=== PATIENT | female | born 1945 | race Caucasian/White ===

== ENCOUNTER → 2020-02-19 12:15 | Outpatient (CLI) | payer MEDICARE, MEDICAID, SELFPAY ==
--- NOTE | 2020-02-19 | DI.MRI.S_ITS ---
PROCEDURE: MR KNEE RT WO CON INDICATIONS: PAIN IN RIGHT KNEE TECHNIQUE: Noncontrast sagittal PD fast spin echo and T2 fast spin echo with fat saturation, sagittal 3-D FLASH with fat saturation; coronal T1 spin echo and PD fast spin echo with fat saturation, and axial PD fast spin echo with fat saturation through the knee. COMPARISON: None. FINDINGS: Image quality: Diagnostic. Slightly degraded study due to motion artifact. Menisci: There is peripheral displacement of medial meniscus bowing medial collateral ligament. Complex tear involving body and posterior horn of medial meniscus is seen extending to both superior and inferior articulating surfaces. No evidence of focal lateral meniscal tear. The meniscal root ligaments appear intact. Cruciate ligaments: The anterior and posterior cruciate ligaments appear intact. Medial structures: There is low to moderate grade MCL sprain. The posterior oblique ligament, semimembranosus tendon insertions, oblique popliteal ligament, and meniscocapsular junction appear intact. Visualized portions of the pes anserinus tendons appear normal. No abnormal bursal fluid. Lateral structures: The lateral collateral ligament, long and short heads of the biceps femoris tendon appear intact. The popliteus tendon appears normal; the popliteofibular ligament appears intact. The posterosuperior and anteroinferior popliteomeniscal fascicles appear intact. The arcuate and fabellofibular ligaments appear intact, on either side of the lateral inferior geniculate artery. Iliotibial band appears normal. Anterior structures: The quadriceps and patellar tendons appear intact. Patellar alignment is normal. No femoral trochlear dysplasia or ventral trochlear prominence. No edema in the infrapatellar fat pad. Bones and cartilage: No bone marrow contusions or fractures. Moderate to severe tricompartmental osteoarthritis and chondromalacia is seen most prominent in the medial femoral tibial compartment. Joint space: There is moderate amount of joint fluid, and no gross intra-articular loose body.. No Abraham's cyst. Normal appearing synovial plicae are incidentally noted. IMPRESSION: 1. Peripheral displacement of medial meniscus. Complex tear involving body and posterior horn of medial meniscus extending to both superior and inferior articulating surfaces. No evidence of focal lateral meniscal tear. 2. Low to moderate grade MCL sprain. Cruciate ligaments are intact. 3. Moderate to severe tricompartmental osteoarthritis and chondromalacia most prominent in the medial femoral tibial compartment. Moderate joint effusion, no gross loose body. Dictated by: Alec Aragon M.D. on 02/19/2020 at 15:21 Approved by: Alec Aragon M.D. on 02/19/2020 at 15:50
[2020-02-19 13:27] LABS: Add Manual Diff / Slide Review NO; Basophils Absolute Auto 100 /uL (0-100); Basophils Percent Auto 1.1 % (0-2); Eosinophils Absolute Auto 100 /uL (0-450); Eosinophils Percent Auto 1.1 % (2-4); Hematocrit 45.5 % (36-46); Hemoglobin 15.2 g/dL (12.0-16.0); Lymphocytes Absolute Auto 2100 /uL (1100-4500); Lymphocytes Percent Auto 26.1 % (25-40); Mean Corpuscular HGB Conc 33.5 % (30-36); Mean Corpuscular Hemoglobin 30.8 PG (26-34); Mean Corpuscular Volume 91.8 fL (80-100); Monocytes Absolute Auto 600 /uL (0-900); Monocytes Percent Auto 7.3 % (3-14); Neutrophils Absolute Auto 5300 /uL (1500-7000); Neutrophils Percent Auto 64.4 % (50-75); Platelet Count 194 X10^3/uL (150-400); Red Blood Cell Count 4.96 X10^6/uL (4.0-5.2); Red Cell Distribution Width 14.3 % (11.6-14.8); White Blood Cell Count 8.2 X10^3/uL (4.5-11.0)
[2020-02-19 13:31] LABS: Hemoglobin A1C% w Est Avg Glu 5.4 % (4.0-6.0)
[2020-02-19 13:36] LABS: Appearance Urine UA CLOUDY; Bilirubin Urine UA NEGATIVE (NEGATIVE); Color Urine UA YELLOW; Glucose Urine UA NEGATIVE (Negative); Ketones Urine UA NEGATIVE (NEGATIVE); Leukocyte Esterase Urine UA TRACE (NEGATIVE); Nitrite Urine UA POSITIVE (Negative); Occult Blood Urine UA 2+ (Negative); Protein Urine UA NEGATIVE (Negative); Urobilinogen Urine UA 0.2 E.U./dL (0.2)
[2020-02-19 13:52] LABS: Bacteria Urine Many (>30); Culture Indicated Urine Specimen Cultured; RBC Urine 1-5/HPF (0-5/HPF); Squamous Epithelial Cell Urine 1-5 /HPF (0-5/HPF); WBC Urine 5-10/HPF (0-5/HPF)
[2020-02-19 13:55] LABS: BUN Creatinine Ratio 27.1 (6-22); Blood Urea Nitrogen 23 mg/dL (7-17); Calcium 11.3 mg/dL (8.4-10.2); Carbon Dioxide 27 mmol/L (22-32); Chloride 102 mmol/L (98-107); Estimated Glomerular Filt Rate > 60.0 mL/min (>60); Glucose 101 mg/dL (80-110); HEMOLYSIS < 15 (0-50); Sodium 135 mmol/L (137-145)
== END ==
PROVIDERS: Family Provider Internal Medicine; Referring Provider Orthopaedic Surgery; Visit Provider Orthopaedic Surgery
DX: Z01.818 Encounter for other preprocedural examination (principal); Z01.812 Encounter for preprocedural laboratory examination; M25.561 Pain in right knee; S83.231A Complex tear of medial meniscus, current injury, right knee, initial encounter; S83.411A Sprain of medial collateral ligament of right knee, initial encounter; M17.11 Unilateral primary osteoarthritis, right knee; M94.261 Chondromalacia, right knee; M25.461 Effusion, right knee; R73.9 Hyperglycemia, unspecified; N39.0 Urinary tract infection, site not specified
CPT/HCPCS: 36415; 73721; 80048; 81001; 83036; 85025; 87077; 87086; 87186; 93005

== ENCOUNTER → 2020-03-16 12:20 | Outpatient (CLI) | payer MEDICARE, MEDICAID, SELFPAY ==
[2020-03-17 23:36] LABS: COVID19 Sendout Not Detected (Not Detect)
== END ==
PROVIDERS: Family Provider Internal Medicine; Visit Provider Physician Assistant
DX: Z01.812 Encounter for preprocedural laboratory examination (principal)
CPT/HCPCS: 87635

== ENCOUNTER 2020-03-20 14:32 | Inpatient (IN) | payer MEDICARE, MEDICAID, SELFPAY ==
[2020-03-12 12:53] VITALS: BMI 37.5
[2020-03-19] VITALS (13 sets, daily range): BP systolic 94–160; BP diastolic 54–91; PULSE 60–70; RESP 11–18; TEMP 33.8–36.7; O2SAT 93–97; BMI 37.5
[2020-03-19] MEDS: CELECOXIB 200 MG CAPSULE PO (07:05)
[2020-03-19] MEDS: ACETAMINOPHEN 325 MG TABLET 975 MG PO (07:05)
[2020-03-19] MEDS: PREGABALIN 75 MG CAPSULE PO (07:06)
[2020-03-19] MEDS: VANCOMYCIN 1,000 MG/200 ML PIGGYBACK 200 MG IV (07:07)
[2020-03-19] MEDS: LACTATED RINGERS 1,000 ML 42 ML IV ×2 (07:15→09:19)
--- NOTE | 2020-03-19 07:40 | PM.PREOP ---
Pre-operative Note COVID-19 COVID-19 status: Negative Interval Note History & Physical reviewed/Exam performed by Physician: Yes Changes to H&P: No
--- NOTE | 2020-03-19 07:41 | P.OP_ITS ---
Operative Date/Time/Diagnoses Date of procedure: 03/19/20 Time of procedure: 07:56 Pre-op diagnosis: right knee oa Post-op diagnosis: same Procedure & Clinicians Procedure: right total knee Same procedure as scheduled: Yes Indications: The patient has had progressively worsening right knee pain with radiographic changes consistent with arthritis. Non-operative management has failed and the patient has requested total knee replacement. The risks, benefits and alternatives to surgery were discussed with the patient prior to proceeding. Risks discussed included, but were not limited to, failure to relieve pain, stiffness, infection, nerve damage, deep venous thrombosis, pulmonary embolism, stroke, coma, heart attack, permanent paralysis and , as well as the potential need for eventual revision of the prosthetic. Surgeon: Alexa Weldon Lens Gauger: Tali Camacho Anesthesia Type: General and Spinal Operative Notes Findings: Severe right knee osteoarthritis, good stability Closure Type: primary Specimen(s): none sent Prosthetic devices, grafts, tissues, transplants, or devices: Welodn and Nephew Elliott BCS2 5 femur, 4 tibia, +10, 35 by 7.5 patella Applied: drain(s) Estimated Blood Loss (mL): 200 Blood products transfused: none Tourniquet time (min): 70 Procedure in detail: The patient was seen in the pre-operative area, where the patient identified the right knee as the operative site and this was marked with my initials. The patient received pre-operative antibiotics, and was taken to the operating room and placed on the operative table in the supine position. After satisfactory anesthesia, a estate and trust tax principal out was performed. The right leg was encircled with a tourniquet about the proximal thigh, and the leg was prepared from the toes to the tourniquet with ChloroPrep in the usual fashion and draped through sterile drapes. The leg was elevated and exsanguinated with Eschmark bandage and the tourniquet inflated to [250] mmHg pressure. The knee was approached through an approximately 18 cm incision centered over the patella and carried into the knee through a medial parapatellar arthrotomy. A portion of the medial and lateral meniscus was resected. Soft tissue was carefully mobilized around the patella the patella was measured with a caliper. Bone was resected from the patella and the patellar height was reconstituted with up an appropriate sized patellar component. A cover was then placed on the patella. A small amount of additional medial and lateral meniscus was resected. The visionare guide fit well to the distal femur. It looked like an appropriate distal femoral cut and the cut was made without difficulty. The rotation was assessed and the appropriate size femoral guide was placed on the distal femur and finishing cuts were made. There is no evidence of notching. The anterior, posterior and chamfer cuts were then made. The posterior osteophytes and soft tissues were then removed. The posterior capsule was injected with part of a mixture of 60 ml 0.25% Marcaine mixed with 20 ml Exparel for post operative pain control. The remainder of this mixture was injected into the capsule and subcutaneous tissues during cement curing. The tibia was prepared and the visionaire guide fit well to the distal tibia. The rotation was assessed. The patient was placed in extension residual medial and lateral meniscus as well as any residual bone was carefully resected. [No] additional tibia was resected. Hemostasis was achieved especially posteriorly. Additional local was injected into the posterior capsule. The extension gap was assessed and additional releases for gap balancing were performed as necessary. It was checked with the gap manpower development advisor. The femoral component was trial was placed and the notch was finished. Trial tibial and femoral components were then placed and the knee placed through a range of motion. Range of motion was [0-130], with good stability throughout the range. The trials were then removed, and the tibia was finished. The bone was prepared with pulsatile lavage, and dried with a sponge. Cement was applied and the final prosthetics placed. Excess cement was removed during and after cement curing. A brief Betadine soak was performed. After confirming there was no extruded cement posteriorly, the final tibial insert was placed. The knee was copiously irrigated and the tourniquet deflated. Hemostasis was obtained with the [Aquamantys system]. A drain was placed and brought out superolaterally. The capsule was closed with interrupted Vicryl suture. The subcutaneous layer was closed with barbed sutures, and the skin with a running 3-0 V-Lock suture and Surgical glue. An Aquacel Ag dressing was applied and the patient was taken to recovery having tolerated the procedure well. Complications: none Post-operative Condition: stable Disposition: Acute Care Plan for aftercare: The patient will be maintained on a standard total knee replacement protocol with weight bearing as tolerated. The patient will receive aspirin and sequential compression devices for DVT prophylaxis. The patient will be discharged home when safe for the home environment.
[2020-03-19] MEDS: CEFAZOLIN 2 GM/100 ML FROZ.PIGGY IV ×2 (07:45→16:06)
--- NOTE | 2020-03-19 08:24 | SUR.OPER ---
Supine on padded OR bed. Pillow under head, arms secured on padded armboards <90 degree abduction. Safety belt across torso. Non-operative leg secured with tape over blanket over lower leg. Operative leg secured in DeMayo positioner. Foam padded brace at thigh of operative leg.
[2020-03-19] MEDS: BUPIVACAINE LIPOSOME 266 MG/20 ML VIAL INJ (08:37)
[2020-03-19] MEDS: BUPIVACAINE 0.25% W/ EPI 30 ML VIAL 60 ML INJ (08:37)
[2020-03-19] MEDS: TRANEXAMIC ACID 1,000 MG VIAL 1000 MG INJ ×2 (08:39→09:33)
[2020-03-19] MEDS: SODIUM CHLORIDE IRRIG SOLUTION 250 ML, POVIDONE-IODINE SPONGE STICKS 1 APPLIC IRR (08:40)
--- NOTE | 2020-03-19 10:10 | DI.RAD.S_ITS ---
PROCEDURE: XR KNEE RT 1TO2V INDICATIONS: POST OPERATIVE TOTAL RIGHT KNEE TECHNIQUE: 2 view(s) of the knee acquired. COMPARISON: [facility], , KNEE 1-2 VIEWS LEFT, 09/12/2015, 13:34. FINDINGS: Bones: Patient is status post right knee total arthroplasty. Hardware components are in expected positions. Visualized bony structures are intact. Soft tissues: Overlying postoperative changes are noted. IMPRESSION: Satisfactory appearance of the right knee total arthroplasty. Dictated by: Chaka Chand M.D. on 03/19/2020 at 10:59 Approved by: Chaka Chand M.D. on 03/19/2020 at 11:00
[2020-03-19] MEDS: LACTATED RINGERS 1,000 ML 100 ML IV ×2 (11:15→21:55)
--- NOTE | 2020-03-19 12:24 | PC.NURSE ---
1045- Patient up from surgery around 1044, she had a total r.knee. Dressing to r.knee is an aquacel with praneeth wrap that is all cdi. Patient has feeling down to her r.mid thigh and is starting to have more feeling to her lower abdomen, bladder area. Patient does not have the sensation to void yet. She ate lunch well and denies any nausea. IVF LR infusing at 100cc/hr and patient is tolerating this well. CMS wnl and ppx2.
[2020-03-19] MEDS: IBUPROFEN 400 MG TABLET PO ×3 (13:34→22:01)
[2020-03-19] MEDS: ACETAMINOPHEN 325 MG TABLET 650 MG PO ×2 (13:35→20:58)
--- NOTE | 2020-03-19 16:59 | PT.IIE ---
Current Diagnoses Unilateral primary osteoarthritis, right knee (03/19/20) Surgery Performed Operation Date: 03/19/20 07:45 Actual Procedures p Total Knee Arthroplasty(Right) - Alexa Weldon MD Surgical History (Last Updated 03/12/20 @ 13:10 by Deepa Martinez RN) History of arthroplasty of left knee (Acute 08/2015) History of arthroplasty of right hip (Acute 09/2014) History of colon surgery (Acute 02/2019) History of colonoscopy (Acute 2018) History of hysterectomy (Acute) History of total left hip arthroplasty (Acute 06/2014) Hx of appendectomy (Acute) Hx of arthroscopy of left knee (Acute) Hx of cholecystectomy (Acute) Hx of eye surgery (Acute 2010) Medical History (Last Updated 03/12/20 @ 13:06 by Deepa Martinez RN) Arthritis (Acute) Heel fracture (Acute ~1969) Hypercalcemia (Acute) Osteoarthritis (Acute) Physical Therapy Inpatient Evaluation/Re-Eval M1 PT/OT-IP Prior Functional Status Start: 03/19/20 13:40 Freq: NEEDED Status: Active Protocol: Document 03/19/20 16:36 AW (Rec: 03/19/20 16:59 AW [id number]) Medical Review Prior Functional Status Medical History Reviewed Yes Communication WNL. Pt is an effective verbal communicator. Mobility and Gait Independent community ambulation at baseline. Pt states she could walk at least a few blocks. Activities of Daily Living and IADL's Independent Prior Functional Level (Other details) Pt has history of bilateral THOMAS and left TKA. Social History Household Members none Living Arrangements Mobile home Number of Floors (Floors) One Floor Number of Stairs To Enter/Railing? From the front of the double wide mobile home, pt climbs 4 stairs with wide bilateral rails to her deck. She often uses the walker on one side and the right railing. From her deck, she climbs another 2 steps to her sliding door using the right railing. Home Environment Standard Height Toilet,Tub/ Shower Home Equipment Front Wheel Walker,Straight Cane,Manual Wheelchair,Raised Toilet Seat w/Armrests,Tub Transfer Bench,Shower Seat with Backrest,Hand Held Shower ,Long Handled Shoe Horn, Rubber Goods Finisher,Sock Aid,Hospital Bed, Bed Rails Additional Social History Comment Pt rented a hospital bed with rails for the first few weeks of recovery. She lives alone but has a neice who will stay in her guest room to provide assist when she discharges. Pt also has advent ladies who will look in on her and help. M2 PT-IP Current Condition Start: 03/19/20 13:40 Freq: NEEDED Status: Active Protocol: Document 03/19/20 16:36 AW (Rec: 03/19/20 16:59 AW [id number]) Physical Therapy Current Condition Current Condition Evaluation Date 03/19/20 Treatment Diagnosis R TKA; impaired mobility Onset Date 03/19/20 Weight Bearing Status Weight Bearing Status Weight Bear as Tolerated M3 PT-IP Subjective Start: 03/19/20 13:40 Freq: NEEDED Status: Active Protocol: Document 03/19/20 16:36 AW (Rec: 03/19/20 16:59 AW [id number]) Subjective Physical Therapy Visit Type Type Initial Evaluation Visit Start Time 16:00 Visit Stop Time 16:31 Total Visit Minutes 31 Physical Therapy Visit Comments Patient Comments Pt is willing to participate with PT. This isn't my first rodeo. Patient Goals To go home with family and friends to support and assist. Therapy Pain Assessment Pain When Pain Assessed During Mobility Pain Present Pain Present Pain Reported Location right knee Intensity 7 Scale Used Numeric (0 - 10) Description With Movement Pain Behaviors Facial Grimacing,Wincing Pain Management Techniques Apply Cold,Re-positioning, Timing of Activity with Medications M4 PT-IP Mobility and Gait Start: 03/19/20 13:40 Freq: NEEDED Status: Active Protocol: Document 03/19/20 16:36 AW (Rec: 03/19/20 16:59 AW [id number]) PT-Bed Mobility Assessment Supine to Sit Supine to Sit Standby Assistance,Head of Bed Elevated Scooting Scooting to Edge of Bed Standby Assistance PT-Transfer Assessment Sit to and From Stand Sit to and from Stand Contact Guard Assistance,1 Person Assistance,Use of Upper Extremities Equipment Transfer Assistive Device Gait Belt,Front Wheeled Walker Transfers Transfer Destination Chair,Bedside Commode Transfer Technique pt ambulated with FWW Transfer Ability Level of Assist Contact Guard Assistance,Use of Upper Extremities Comments Mobility Comments Pt was lying in bed upon PT arrival. She was still not able to feel her glutes and had limited sensation distally but was willing to attempt mobility. She has rented a hospital bed for home so completed supine to sit with HOB elevated SBA. She sat EOB with and without UE support before standing with the walker CGA. She was able to maintain right quad activation without verbal or tactile cues. She transferred to the [facility] CGA and proceeded to void. She then stood CGA with the FWW ~ three minutes and performed her own pericare with steady balance. Pt then ambulated in the halls with FWW CGA with min verbal cues to keep her feet within the walker frame at all time. Pt also responded well to cues to keep her shoulders over her hands in order to avoid excessive trunk flexion. Pt returned to the room and transferred to the chair CGA. She was positioned there with call light and all needs within reach. Pt was left with CAFE ATTENDANT attending. Gait Assessment Gait Gait Assistance Required: Contact Guard Assist Distance (Feet) 50 Able to Maintain Weight Bearing Status Yes During Gait Assistive Devices Assistive Device Gait Belt,Front Wheeled Walker Gait Deviations General Gait Pattern Antalgic,Decreased Stride Length,Decreased Feet Clearance,Flexed Trunk,Step-to Gait Factors Limiting Gait Function Factors Limiting Gait Function Decreased Activity Tolerance, Decreased Sensation,Decreased Strength,Limited Range of Motion,Pain,Poor Balance,Poor Safety Awareness Comments Gait Comments See mobility comments. Pt ambulated with FWW CGA, step- to patterning. Stair Climbing Assessment Comments Stair Climbing Comments Not assessed this visit. PT-Balance Assessment Sitting Balance and Reactions Static Sitting Balance Ability Normal Dynamic Sitting Balance Ability Normal Standing Balance and Reactions Static Standing Balance Ability Good Dynamic Standing Balance Ability Good Device Used FWW M5 PT-IP Objective Assessments Start: 03/19/20 13:40 Freq: NEEDED Status: Active Protocol: Document 03/19/20 16:36 AW (Rec: 03/19/20 16:59 AW [id number]) Orientation Orientation/Cognition Level of Alertness Alert Orientation Name,Day of Week,Place, Situation Language Function Ability No Deficits Noted Safety Awareness Understands Safety Issues, Decreased Safety Awareness Memory Description No Deficits Noted Gross Range of Motion Upper Extremity ROM Assessment Within Functional Limits Lower Extremity ROM Assessment Right Impaired Strength Lower Extremity Strength Assessment Right Impaired Comments Strength Comments L LE grossly 4+/5 except hip 4 /5 Coordination Assessment Gross Coordination Gross Coordination WNL Sensation Assessment Sensation Gross Sensation Right LE Impaired,Left LE Impaired Light Touch Impaired Sensation Description Numbness Muscle Tone Muscle Tone WNL Yes M6 PT-IP Treatment Start: 03/19/20 13:40 Freq: NEEDED Status: Active Protocol: Document 03/19/20 16:36 AW (Rec: 03/19/20 16:59 AW [id number]) Physical Therapy Treatment Exercises Exercises Ankle Pumps,Quad Sets,Heel Slides,Passive Knee Extension Hang Education Education Provided Precautions,Weight Bearing Status,Post-Op Packet,Safety Other Treatments Other Treatment Performed Provided education on role of PT, plan of care, weightbearing status, and safe use of FWW. M7 PT-IP Assessment and Plan Start: 03/19/20 13:40 Freq: NEEDED Status: Active Protocol: Document 03/19/20 16:36 AW (Rec: 03/19/20 16:59 AW [id number]) PT Summary Assessment and Plan Potential Rehabilitation Potential Good Status of Condition at Evaluation Evolving Summary Impairments Pain,ROM,Strength,Balance, Sensation,Bed Mobility, Transfers,Gait,Activity Tolerance Assessment Summary July is a 74 yo woman seen for PT evaluation on POD0 following R TKA. She has history of bilateral THOMAS and left TKA - all with good recoveries. She is independent in all regards at baseline and is well-equipped with DME at home from past surgeries. She has also rented a hospital bed for the first few weeks of present recovery. On evaluation, pt required SBA for bed mobility and CGA for transfers and ambulation with FWW. PT anticipates she will be safe to discharge home with assist and outpatient PT once medically cleared. Goals Bed Mobility Goal Independent Transfer Goal Standby Assistance,Front Wheeled Walker Gait Goal Standby Assistance,Front Wheel Walker Gait Distance 200 Other Goals - up/down 4 steps with R rail ascending SBA Days to Meet Goals 2 Frequency of Treatment Frequency Of Treatment Twice a Day Treatment Plan Physical Therapy Treatment Plan Bed Mobility Training,Transfer Training,Gait Training, Therapeutic Exercise,Balance Retraining,Post Op Education, Discharge Planning,Hot or Cold Pack,Neuromuscular Re-ed Other Recommendations and Next Treatment gait training with FWW; stairs Focus if able Recommendations To Nursing Amount of Assist Needed 1 Person Assist Discharge Recommendations PT Discharge Recommendations Home with Assistance, Outpatient PT Transportation Needs at Discharge Private Vehicle
[2020-03-19] MEDS: OXYCODONE IR 5 MG TABLET PO (17:08)
[2020-03-19] MEDS: ASCORBIC ACID 500 MG TABLET PO (20:58)
[2020-03-19] MEDS: ASPIRIN EC 81 MG TABLET PO (20:58)
[2020-03-19] MEDS: DOCUSATE 100 MG CAPSULE PO (20:59)
[2020-03-20] VITALS (7 sets, daily range): BP systolic 116–140; BP diastolic 67–77; PULSE 61–72; RESP 16–18; TEMP 35.9–36.8; O2SAT 95–96
[2020-03-20] MEDS: IBUPROFEN 400 MG TABLET PO ×6 (00:23→21:08)
[2020-03-20] MEDS: CEFAZOLIN 2 GM/100 ML FROZ.PIGGY IV (00:23)
[2020-03-20] MEDS: OXYCODONE IR 5 MG TABLET PO (05:19)
[2020-03-20 06:10] LABS: Hematocrit 38.4 % (36-46); Hemoglobin 12.6 g/dL (12.0-16.0)
[2020-03-20] MEDS: ASPIRIN EC 81 MG TABLET PO ×2 (08:24→21:02)
[2020-03-20] MEDS: OXYCODONE IR 10 MG TABLET PO ×3 (08:25→16:26)
[2020-03-20] MEDS: ACETAMINOPHEN 325 MG TABLET 650 MG PO ×3 (08:25→21:01)
[2020-03-20] MEDS: ZINC SULFATE 220 MG CAPSULE PO (08:26)
[2020-03-20] MEDS: ASCORBIC ACID 500 MG TABLET PO ×2 (08:26→21:02)
[2020-03-20] MEDS: CHOLECALCIFEROL (VITAMIN D3) 5,000 UNIT TABLET 5000 UNIT PO (08:26)
[2020-03-20] MEDS: CHLORTHALIDONE 25 MG TABLET PO (08:26)
[2020-03-20] MEDS: CYANOCOBALAMIN (VITAMIN B-12) 500 MCG TABLET 1000 MCG PO (08:27)
[2020-03-20] MEDS: DOCUSATE 100 MG CAPSULE PO ×2 (08:27→21:02)
--- NOTE | 2020-03-20 09:40 | PC.NURSE ---
Addendum entered by Alison Cohen R.N. 03/20/20 14:01: Patients hemovac taken out. She had 100cc of bloody drainage out. Her r.leg is elevated and she is comfortable. Addendum entered by Alison Cohen R.N. 03/20/20 13:50: Patient medicated with Oxycodone around 1200. She sat up and worked with physical therapy and did well. Patient is still having some pain issues, she will be discharging tomorrow. Hemovac taken out. Original Note: Patient is A&Ox3, she denies pain at this time as her oxycodone has been increased to 10mg. This seems to be effective for her 6/10 pain. Patient has an aquacel dressing in place with praneeth wrap that is cdi. She is getting up with 1 person assist to the commode. Resting comfortably now, CMS wnl.
--- NOTE | 2020-03-20 11:05 | CM.DANOTE ---
DCP: Case received, EMR reviewed and met with patient. Introduced self and role. Was able to meet with patient and obtain information regarding her baseline activity level at home prior to surgery, and living situation. DCP assessment completed with information currently available. Patient is a 74 year old female who admitted yesterday morning to the care of the orthopedic team. PCP: Dr. Bryant. Payer: confirmed: Medicare/Medicaid. Patient came to the hospital via family vehicle for a surgical procedure. She had right total knee arthroplasty. Patient has history of osteoarthritis in her knee, resulting in chronic knee pain. Met with patient in her room. She was sitting up in her bed. She is alert and oriented. She lives in [place], alone. Her daughter, Carolee Hurt also lives in the area, but patient indicated that her niece, Tamela, will be staying with her to help out. Patient also has stairs in the home, which P.T. will be working with her on. She does have a walker for use. P: DCP to continue to follow. Patient should be able to go home when she is medically stable and cleared by P.T. Liza Salinas RN/Fundraising Manager
--- NOTE | 2020-03-20 11:45 | PT.IPTN ---
Current Diagnoses Unilateral primary osteoarthritis, right knee (03/19/20) Surgery Performed Operation Date: 03/19/20 07:45 Actual Procedures p Total Knee Arthroplasty(Right) - Alexa Weldon MD Physical Therapy Treatment Note M2 PT-IP Current Condition Start: 03/19/20 13:40 Freq: NEEDED Status: Active Protocol: Document 03/19/20 16:36 AW (Rec: 03/19/20 16:59 AW [id number]) Physical Therapy Current Condition Current Condition Evaluation Date 03/19/20 Treatment Diagnosis R TKA; impaired mobility Onset Date 03/19/20 Weight Bearing Status Weight Bearing Status Weight Bear as Tolerated M3 PT-IP Subjective Start: 03/19/20 13:40 Freq: NEEDED Status: Active Protocol: Document 03/20/20 11:19 SP (Rec: 03/20/20 14:02 SP [id number]) Subjective Physical Therapy Visit Type Type Treatment Note Visit Start Time 11:19 Visit Stop Time 11:45 Total Visit Minutes 26 Notes PRICE LISTER student [place], assisted during tx. Number of PRICE LISTER Visits 1 Physical Therapy Visit Comments Patient Comments Pt is willing to participate with PT. This isn't my first rodeo. Patient Goals To go home with family and friends to support and assist. Therapy Pain Assessment Pain When Pain Assessed During Mobility Pain Present Pain Present Pain Reported Location right knee Intensity 6 Scale Used Numeric (0 - 10) Description Aching,Acute,With Movement Pain Behaviors Facial Grimacing,Holding Area, Restlessness,Wincing Pain Management Techniques Apply Cold,Re-positioning, Timing of Activity with Medications M4 PT-IP Mobility and Gait Start: 03/19/20 13:40 Freq: NEEDED Status: Active Protocol: Document 03/20/20 11:19 SP (Rec: 03/20/20 14:02 SP [id number]) PT-Bed Mobility Assessment Supine to Sit Supine to Sit Standby Assistance,Head of Bed Elevated Sit to Supine Sit to Supine Standby Assistance Scooting Scooting to Edge of Bed Standby Assistance PT-Transfer Assessment Sit to and From Stand Sit to and from Stand Standby Assistance,Contact Guard Assistance,Use of Upper Extremities Equipment Transfer Assistive Device Gait Belt,Front Wheeled Walker Transfers Transfer Destination Bed,Wheelchair Transfer Technique pt ambulated with FWW Transfer Ability Level of Assist Contact Guard Assistance,Use of Upper Extremities Comments Mobility Comments Pt was lying in bed upon PT arrival. Instructed post op exercises warm up to mobility, x2 reps each, AAROM heel slides with her UE support. Elevated supine<> sitting SBA with UE supporting RLE in/out bed, scoot to EOB SBA. Sit <> stand CG-SBA using FWW, needed stationary standing brief pre gait for RLE stability, CGA L side of bed to hallway approx 20 ft (not as far as previous distances) step to gait initially but improved with cuing for BUE WB into FWW, RLE quad facilitation during midstance and knee flexion and heel toe gait progressing step over step as tolerated. Once outsided room pt requested needed seated break, step pivot back to w/c with good safety hand placment and slow descent. Pt demonstrated decreased strength, activity tolerance and report of increased pain to R knee 04/08. Pt agreed to continue to assessment of stair mgt, therapist wheeled patient to stairs. Pt ascend/descended 6 stairs step to patterning L HR and SPC in RUE, initially Min A and support to stabilize SPC then second set CGA and patient able to stabilize SPC herself. Pt was able to walk further in hallway after stairs approx 20 ft with w/c follow before requiring seated rest due to pain of R knee intolerable. Wheeled patient back to room. Pt walked further in room approx 15 ft SBA using FWW then safe step pivoting to back up to bed with reaching back then sitting>supine SBA with UE support to reposition RLE on bed herself. Pt was elevated supine in bed with RLE support on pillows, cold pack donned and call light and all needs in reach before left. Pt requested that notify nursing med assistance with pain control, completed. She has rented a hospital bed for home so completed supine to sit with HOB elevated SBA. She sat EOB with and without UE support before standing with the walker CGA. She was able to maintain right quad activation without verbal or tactile cues. [place] transferred to the [facility] [place] and proceeded to void. She then stood CGA with the FWW ~ three minutes and performed her own pericare with steady balance. Pt then ambulated in the halls with FWW CGA with min verbal cues to keep her feet within the walker frame at all time. Pt also responded well to cues to keep her shoulders over her hands in order to avoid excessive trunk flexion. Pt returned to the room and transferred to the chair [facility]. She was positioned there with call light and all needs within reach. Pt was left with [employer] attending. Gait Assessment Gait Gait Assistance Required: Contact Guard Assist Distance (Feet) 20 Able to Maintain Weight Bearing Status Yes During Gait Assistive Devices Assistive Device Gait Belt,Front Wheeled Walker Gait Deviations General Gait Pattern Antalgic,Decreased Stride Length,Decreased Feet Clearance,Flexed Trunk,Step-to Gait Factors Limiting Gait Function Factors Limiting Gait Function Decreased Activity Tolerance, Decreased Sensation,Decreased Strength,Limited Range of Motion,Pain,Poor Balance,Poor Safety Awareness Comments Gait Comments See mobility comments. Ambulted 20 ft, 20 ft, 15 ft using FWW CGA- SBA wtih w/c follow in hallway step to progressing step over step patterning. Stair Climbing Assessment Evaluation Level of Assist On Stairs Contact Guard Assistance, Minimal Assistance,1 Person Assistance Devices Stair Climbing Assistive Devices Straight Cane,Left Railing Technique/Endurance Stair Climbing Direction Ascend and Descend Stair Climbing Technique Step to Step Number of Steps Climbed 3 Stair Climbing Set # Repetitions (reps) 2 Comments Stair Climbing Comments See mobility comments. PT-Balance Assessment Sitting Balance and Reactions Static Sitting Balance Ability Normal Dynamic Sitting Balance Ability Normal Standing Balance and Reactions Static Standing Balance Ability Good Dynamic Standing Balance Ability Good Device Used FWW M5 PT-IP Objective Assessments Start: 03/19/20 13:40 Freq: NEEDED Status: Active Protocol: Document 03/19/20 16:36 AW (Rec: 03/19/20 16:59 AW [id number]) Orientation Orientation/Cognition Level of Alertness Alert Orientation Name,Day of Week,Place, Situation Language Function Ability No Deficits Noted Safety Awareness Understands Safety Issues, Decreased Safety Awareness Memory Description No Deficits Noted Gross Range of Motion Upper Extremity ROM Assessment Within Functional Limits Lower Extremity ROM Assessment Right Impaired Strength Lower Extremity Strength Assessment Right Impaired Comments Strength Comments L LE grossly 4+/5 except hip 4 /5 Coordination Assessment Gross Coordination Gross Coordination WNL Sensation Assessment Sensation Gross Sensation Right LE Impaired,Left LE Impaired Light Touch Impaired Sensation Description Numbness Muscle Tone Muscle Tone WNL Yes M6 PT-IP Treatment Start: 03/19/20 13:40 Freq: NEEDED Status: Active Protocol: Document 03/20/20 11:19 SP (Rec: 03/20/20 14:02 SP [id number]) Physical Therapy Treatment Exercises Exercises Ankle Pumps,Quad Sets,Heel Slides,Seated Knee Flexion/ Extension Education Education Provided Precautions,Weight Bearing Status,Post-Op Packet,Safety M7 PT-IP Assessment and Plan Start: 03/19/20 13:40 Freq: NEEDED Status: Active Protocol: Document 03/20/20 11:19 SP (Rec: 03/20/20 14:02 SP [id number]) PT Summary Assessment and Plan Potential Rehabilitation Potential Good Status of Condition at Evaluation Evolving Summary Impairments Pain,ROM,Strength,Balance, Sensation,Bed Mobility, Transfers,Gait,Activity Tolerance Assessment Summary July is independent in all regards at baseline PLOF and is well-equipped with DME at home from past surgeries. She has also rented a hospital bed for the first few weeks of present recovery. Pt required SBA for bed mobility and CGA- SBA for transfers and ambulation with FWW, CGA- Kota during stair mgt L HR and SPC RUE. Pt demonstrated decreased strength and activity tolerance and reported increased pain 8/10 during mobility but willing to work with PT at this time. Would benefit from further acute skilled PT pm treatment to progress further in strength within pain tolerance : LE exercises and WB in standing to progress functional mobility. PRICE LISTER anticipates she will be safe to discharge home with assist and outpatient PT once medically cleared. Goals Bed Mobility Goal Independent Transfer Goal Standby Assistance,Front Wheeled Walker Gait Goal Standby Assistance,Front Wheel Walker Gait Distance 200 Other Goals - up/down 4 steps with R rail ascending SBA Days to Meet Goals 2 Frequency of Treatment Frequency Of Treatment Twice a Day Treatment Plan Physical Therapy Treatment Plan Bed Mobility Training,Transfer Training,Gait Training, Therapeutic Exercise,Balance Retraining,Post Op Education, Discharge Planning,Hot or Cold Pack,Neuromuscular Re-ed Other Recommendations and Next Treatment LE exercises, gait training Focus with FWW; Recommendations To Nursing Amount of Assist Needed Standby Assistance Discharge Recommendations PT Discharge Recommendations Home with Assistance, Outpatient PT Transportation Needs at Discharge Private Vehicle
--- NOTE | 2020-03-20 11:45 | PT.IPTN ---
Current Diagnoses Unilateral primary osteoarthritis, right knee (03/20/20) Surgery Performed Operation Date: 03/19/20 07:45 Actual Procedures p Total Knee Arthroplasty(Right) - Alexa Weldon MD Physical Therapy Treatment Note M2 PT-IP Current Condition Start: 03/19/20 13:40 Freq: NEEDED Status: Active Protocol: Document 03/19/20 16:36 AW (Rec: 03/19/20 16:59 AW [id number]) Physical Therapy Current Condition Current Condition Evaluation Date 03/19/20 Treatment Diagnosis R TKA; impaired mobility Onset Date 03/19/20 Weight Bearing Status Weight Bearing Status Weight Bear as Tolerated M3 PT-IP Subjective Start: 03/19/20 13:40 Freq: NEEDED Status: Active Protocol: Document 03/20/20 11:19 SP (Rec: 03/20/20 14:02 SP [id number]) Subjective Physical Therapy Visit Type Type Treatment Note Visit Start Time 11:19 Visit Stop Time 11:45 Total Visit Minutes 26 Notes MASK INSPECTOR student [place], assisted during tx. Number of MASK INSPECTOR Visits 1 Physical Therapy Visit Comments Patient Comments Pt is willing to participate with PT. This isn't my first rodeo. Patient Goals To go home with family and friends to support and assist. Therapy Pain Assessment Pain When Pain Assessed During Mobility Pain Present Pain Present Pain Reported Location right knee Intensity 6 Scale Used Numeric (0 - 10) Description Aching,Acute,With Movement Pain Behaviors Facial Grimacing,Holding Area, Restlessness,Wincing Pain Management Techniques Apply Cold,Re-positioning, Timing of Activity with Medications M4 PT-IP Mobility and Gait Start: 03/19/20 13:40 Freq: NEEDED Status: Active Protocol: Document 03/20/20 11:19 SP (Rec: 03/20/20 14:02 SP [id number]) PT-Bed Mobility Assessment Supine to Sit Supine to Sit Standby Assistance,Head of Bed Elevated Sit to Supine Sit to Supine Standby Assistance Scooting Scooting to Edge of Bed Standby Assistance PT-Transfer Assessment Sit to and From Stand Sit to and from Stand Standby Assistance,Contact Guard Assistance,Use of Upper Extremities Equipment Transfer Assistive Device Gait Belt,Front Wheeled Walker Transfers Transfer Destination Bed,Wheelchair Transfer Technique pt ambulated with FWW Transfer Ability Level of Assist Contact Guard Assistance,Use of Upper Extremities Comments Mobility Comments Pt was lying in bed upon PT arrival. Instructed post op exercises warm up to mobility, x2 reps each, LEE ANN heel slides with her UE support. Elevated supine<> sitting SBA with UE supporting RLE in/out bed, scoot to EOB SBA. Sit <> stand CG-SBA using FWW, needed stationary standing brief pre gait for RLE stability, CGA L side of bed to hallway approx 20 ft (not as far as previous distances) step to gait initially but improved with cuing for BUE WB into FWW, RLE quad facilitation during midstance and knee flexion and heel toe gait progressing step over step as tolerated. Once outsided room pt requested needed seated break, step pivot back to w/c with good safety hand placment and slow descent. Pt demonstrated decreased strength, activity tolerance and report of increased pain to R knee 04/08. Pt agreed to continue to assessment of stair mgt, therapist wheeled patient to stairs. Pt ascend/descended 6 stairs step to patterning L HR and SPC in RUE, initially Min A and support to stabilize SPC then second set CGA and patient able to stabilize SPC herself. Pt was able to walk further in hallway after stairs approx 20 ft with w/c follow before requiring seated rest due to pain of R knee intolerable. Wheeled patient back to room. Pt walked further in room approx 15 ft SBA using FWW then safe step pivoting to back up to bed with reaching back then sitting>supine SBA with UE support to reposition RLE on bed herself. Pt was elevated supine in bed with RLE support on pillows, cold pack donned and call light and all needs in reach before left. Pt requested that notify nursing med assistance with pain control, completed. Gait Assessment Gait Gait Assistance Required: Contact Guard Assist Distance (Feet) 20 Able to Maintain Weight Bearing Status Yes During Gait Assistive Devices Assistive Device Gait Belt,Front Wheeled Walker Gait Deviations General Gait Pattern Antalgic,Decreased Stride Length,Decreased Feet Clearance,Flexed Trunk,Step-to Gait Factors Limiting Gait Function Factors Limiting Gait Function Decreased Activity Tolerance, Decreased Sensation,Decreased Strength,Limited Range of Motion,Pain,Poor Balance,Poor Safety Awareness Comments Gait Comments See mobility comments. Ambulted 20 ft, 20 ft, 15 ft using FWW CGA- SBA wtih w/c follow in hallway step to progressing step over step patterning. Stair Climbing Assessment Evaluation Level of Assist On Stairs Contact Guard Assistance, Minimal Assistance,1 Person Assistance Devices Stair Climbing Assistive Devices Straight Cane,Left Railing Technique/Endurance Stair Climbing Direction Ascend and Descend Stair Climbing Technique Step to Step Number of Steps Climbed 3 Stair Climbing Set # Repetitions (reps) 2 Comments Stair Climbing Comments See mobility comments. PT-Balance Assessment Sitting Balance and Reactions Static Sitting Balance Ability Normal Dynamic Sitting Balance Ability Normal Standing Balance and Reactions Static Standing Balance Ability Good Dynamic Standing Balance Ability Good Device Used FWW M5 PT-IP Objective Assessments Start: 03/19/20 13:40 Freq: NEEDED Status: Active Protocol: Document 03/19/20 16:36 AW (Rec: 03/19/20 16:59 AW [id number]) Orientation Orientation/Cognition Level of Alertness Alert Orientation Name,Day of Week,Place, Situation Language Function Ability No Deficits Noted Safety Awareness Understands Safety Issues, Decreased Safety Awareness Memory Description No Deficits Noted Gross Range of Motion Upper Extremity ROM Assessment Within Functional Limits Lower Extremity ROM Assessment Right Impaired Strength Lower Extremity Strength Assessment Right Impaired Comments Strength Comments L LE grossly 4+/5 except hip 4 /5 Coordination Assessment Gross Coordination Gross Coordination WNL Sensation Assessment Sensation Gross Sensation Right LE Impaired,Left LE Impaired Light Touch Impaired Sensation Description Numbness Muscle Tone Muscle Tone WNL Yes M6 PT-IP Treatment Start: 03/19/20 13:40 Freq: NEEDED Status: Active Protocol: Document 03/20/20 11:19 SP (Rec: 03/20/20 14:02 SP [id number]) Physical Therapy Treatment Exercises Exercises Ankle Pumps,Quad Sets,Heel Slides,Seated Knee Flexion/ Extension Education Education Provided Precautions,Weight Bearing Status,Post-Op Packet,Safety M7 PT-IP Assessment and Plan Start: 03/19/20 13:40 Freq: NEEDED Status: Active Protocol: Document 03/20/20 11:19 SP (Rec: 03/20/20 14:02 SP [id number]) PT Summary Assessment and Plan Potential Rehabilitation Potential Good Status of Condition at Evaluation Evolving Summary Impairments Pain,ROM,Strength,Balance, Sensation,Bed Mobility, Transfers,Gait,Activity Tolerance Assessment Summary July is independent in all regards at baseline PLOF and is well-equipped with DME at home from past surgeries. She has also rented a hospital bed for the first few weeks of present recovery. Pt required SBA for bed mobility and CGA- SBA for transfers and ambulation with FWW, CGA- Kota during stair mgt L HR and SPC RUE. Pt demonstrated decreased strength and activity tolerance and reported increased pain 8/10 during mobility but willing to work with PT at this time. Would benefit from further acute skilled PT pm treatment to progress further in strength within pain tolerance : LE exercises and WB in standing to progress functional mobility. MASK INSPECTOR anticipates she will be safe to discharge home with assist and outpatient PT once medically cleared. Goals Bed Mobility Goal Independent Transfer Goal Standby Assistance,Front Wheeled Walker Gait Goal Standby Assistance,Front Wheel Walker Gait Distance 200 Other Goals - up/down 4 steps with R rail ascending SBA Days to Meet Goals 2 Frequency of Treatment Frequency Of Treatment Twice a Day Treatment Plan Physical Therapy Treatment Plan Bed Mobility Training,Transfer Training,Gait Training, Therapeutic Exercise,Balance Retraining,Post Op Education, Discharge Planning,Hot or Cold Pack,Neuromuscular Re-ed Other Recommendations and Next Treatment LE exercises, gait training Focus with FWW; Recommendations To Nursing Amount of Assist Needed Standby Assistance Discharge Recommendations PT Discharge Recommendations Home with Assistance, Outpatient PT Transportation Needs at Discharge Private Vehicle
--- NOTE | 2020-03-20 16:03 | PT.IPTN ---
Current Diagnoses Unilateral primary osteoarthritis, right knee (03/20/20) Surgery Performed Operation Date: 03/19/20 07:45 Actual Procedures p Total Knee Arthroplasty(Right) - Alexa Weldon MD Physical Therapy Treatment Note M2 PT-IP Current Condition Start: 03/19/20 13:40 Freq: NEEDED Status: Active Protocol: Document 03/19/20 16:36 AW (Rec: 03/19/20 16:59 AW [id number]) Physical Therapy Current Condition Current Condition Evaluation Date 03/19/20 Treatment Diagnosis R TKA; impaired mobility Onset Date 03/19/20 Weight Bearing Status Weight Bearing Status Weight Bear as Tolerated M3 PT-IP Subjective Start: 03/19/20 13:40 Freq: NEEDED Status: Active Protocol: Document 03/20/20 15:44 SP (Rec: 03/20/20 17:39 SP [id number]) Subjective Physical Therapy Visit Type Type Treatment Note Visit Start Time 15:44 Visit Stop Time 16:03 Total Visit Minutes 19 Notes [employer] student [place], attended tx. Number of DIRECTOR OF EVENT SALES Visits 2 Physical Therapy Visit Comments Patient Comments Pt willing to work with PT. Patient Goals To go home, family and friends to support and assist as needed. Therapy Pain Assessment Pain When Pain Assessed During Mobility Pain Present Pain Present Pain Reported Location right knee Intensity 5 Scale Used Numeric (0 - 10) Description Aching,Acute,With Movement Pain Behaviors Facial Grimacing,Holding Area, Restlessness,Wincing Pain Management Techniques Apply Cold,Re-positioning, Timing of Activity with Medications M4 PT-IP Mobility and Gait Start: 03/19/20 13:40 Freq: NEEDED Status: Active Protocol: Document 03/20/20 15:44 SP (Rec: 03/20/20 17:39 SP [id number]) PT-Bed Mobility Assessment Supine to Sit Supine to Sit Standby Assistance,Head of Bed Elevated Sit to Supine Sit to Supine Standby Assistance Scooting Scooting to Edge of Bed Standby Assistance Scooting Up and Down in Bed Standby Assistance PT-Transfer Assessment Sit to and From Stand Sit to and from Stand Standby Assistance,Use of Upper Extremities Equipment Transfer Assistive Device Gait Belt,Front Wheeled Walker Transfers Transfer Destination Bed Transfer Technique pt ambulated with FWW Transfer Ability Level of Assist Contact Guard Assistance,Use of Upper Extremities Comments Mobility Comments Pt was lying in bed upon PT arrival. Elevated supine<> sitting SBA RLE reposition itself in/out bed, scoot to EOB SBA. Sit <> stand SBA using FWW then step pivot bed to BSC approx 2 steps SBA using FWW and reach back slow descent onto BSC. Sit to stand from commode BUE and fWW, standign balance with FWW 1 hand contact support as needed while completing self hygiene (therapist provided set up supplies). Pt walked to sink approx 5 ft using FWW with improvement in step over step gait patterning with occasional cues. She was able to stand at sink without contact support fWW position correctly in front. Pt then ambulate across room and back to L side of bed approx 30 ft SBA using FWW step over step patterning and moderate BUE WB on FWW during LLE advancement, sat at EOB and sitting>supine, scoot up in bed SBA. Provided pillows under RLE full length allowing full extension and education of importance of knee being straight and reapplied cold pack for assist pain control. Call light and all needs in reach before left. Gait Assessment Gait Gait Assistance Required: Contact Guard Assist Distance (Feet) 30 Able to Maintain Weight Bearing Status Yes During Gait Assistive Devices Assistive Device Gait Belt,Front Wheeled Walker Gait Deviations General Gait Pattern Antalgic,Decreased Stride Length,Decreased Feet Clearance,Flexed Trunk Factors Limiting Gait Function Factors Limiting Gait Function Decreased Activity Tolerance, Decreased Sensation,Decreased Strength,Limited Range of Motion,Pain Comments Gait Comments See mobility comments. Stair Climbing Assessment Comments Stair Climbing Comments Did not assess stair mgt this session. Pt stated will have family/ friends to assist her on stairs when gets home and to appts. PT-Balance Assessment Sitting Balance and Reactions Static Sitting Balance Ability Normal Dynamic Sitting Balance Ability Normal Standing Balance and Reactions Static Standing Balance Ability Good Dynamic Standing Balance Ability Good Device Used FWW M5 PT-IP Objective Assessments Start: 03/19/20 13:40 Freq: NEEDED Status: Active Protocol: Document 03/19/20 16:36 AW (Rec: 03/19/20 16:59 AW [id number]) Orientation Orientation/Cognition Level of Alertness Alert Orientation Name,Day of Week,Place, Situation Language Function Ability No Deficits Noted Safety Awareness Understands Safety Issues, Decreased Safety Awareness Memory Description No Deficits Noted Gross Range of Motion Upper Extremity ROM Assessment Within Functional Limits Lower Extremity ROM Assessment Right Impaired Strength Lower Extremity Strength Assessment Right Impaired Comments Strength Comments L LE grossly 4+/5 except hip 4 /5 Coordination Assessment Gross Coordination Gross Coordination WNL Sensation Assessment Sensation Gross Sensation Right LE Impaired,Left LE Impaired Light Touch Impaired Sensation Description Numbness Muscle Tone Muscle Tone WNL Yes M6 PT-IP Treatment Start: 03/19/20 13:40 Freq: NEEDED Status: Active Protocol: Document 03/20/20 15:44 SP (Rec: 03/20/20 17:39 SP [id number]) Physical Therapy Treatment Education Education Provided Precautions,Weight Bearing Status,Post-Op Packet,Safety Other Treatments Other Treatment Performed Provided education on weightbearing status, and safe use of FWW. M7 PT-IP Assessment and Plan Start: 03/19/20 13:40 Freq: NEEDED Status: Active Protocol: Document 03/20/20 15:44 SP (Rec: 03/20/20 17:39 SP [id number]) PT Summary Assessment and Plan Potential Rehabilitation Potential Good Status of Condition at Evaluation Evolving Summary Impairments Pain,ROM,Strength,Balance, Sensation,Bed Mobility, Transfers,Gait,Activity Tolerance Assessment Summary July is independent in all regards at baseline PLOF and is well-equipped with DME at home from past surgeries. She has also rented a hospital bed for the first few weeks of present recovery. Pt required SBA for bed mobility,transfers and ambulation with FWW. Pt is improving in WB activity tolerance gait across room and back. Would benefit from further acute skilled PT am treatment to progress further in strength within pain tolerance: LE exercises and WB in standing to progress functional mobility. [employer] anticipates she will be safe to discharge home with assist and outpatient PT once medically cleared. Goals Bed Mobility Goal Independent Transfer Goal Standby Assistance,Front Wheeled Walker Gait Goal Standby Assistance,Front Wheel Walker Gait Distance 200 Other Goals - up/down 4 steps with R rail ascending SBA Days to Meet Goals 2 Frequency of Treatment Frequency Of Treatment Twice a Day Treatment Plan Physical Therapy Treatment Plan Bed Mobility Training,Transfer Training,Gait Training, Therapeutic Exercise,Balance Retraining,Post Op Education, Discharge Planning,Hot or Cold Pack,Neuromuscular Re-ed Other Recommendations and Next Treatment LE exercises, gait training Focus with FWW; reassess stair mgt CGA-SBA. Recommendations To Nursing Amount of Assist Needed Standby Assistance Discharge Recommendations PT Discharge Recommendations Home with Assistance, Outpatient PT Transportation Needs at Discharge Private Vehicle
--- NOTE | 2020-03-20 17:22 | PC.NURSE ---
Addendum entered by Delmi Johnson R.N. 03/20/20 22:53: Up to commode with TESTING TECH. Pt reports pain relief better with dilaudid. Back to bed and ice to right knee. RLE supported on pillow x 1. Addendum entered by Delmi Johnson R.N. 03/20/20 21:25: Pt requests pain meds for right knee pain which pt states is worsened with movement/toileting on bedside commode. Strong palpable pedal pulse right foot. Ice to right knee with praneeth wrap intact. Pt requests to change to dilaudid vs oxycodone and this was done. Will continue to monitor. Original Note: Pt calmly lying in bed with cell phone in hands. Rates right knee pain 10/10 on fire following P.T. session twice today per pt statement. Right knee with praneeth wrap in place. Able to see distal aspect aquacel dressing which is dry and intact. Palpable pedal pulse to right foot. BL calf scd's in place. Pt encouraged to use I.S. which pt is able to demonstrate to 1999. Auscultated faint wheezes throughout all lung mensah. Pt denies h/o asthma and denies inhaler use. Will continue to encourage I.S. use. Ice in place to right knee. Discussed with patient all narcotic pain medications ordered by . Pt verbalizes understanding will notify staff if needs stronger medications. Of note: pt has difficulty staying awake to consume evening meal.
--- NOTE | 2020-03-20 20:08 | PM.PN.1 ---
Subjective Subjective Date Patient Seen: 03/20/20 Time Patient Seen: 07:08 Interval history: She notes that she has had significant pain after her block wore off. She was able to get up with physical therapy and ambulate some but she needs having troubles with pain control. She is not having any difficulty urinating she did have a little nausea which he associated with excessive pain. Exam Vital Signs (past 8 hours): - 03/20/20 14:00 03/20/20 15:48 03/20/20 19:59 Temperature 98.2 F 96.6 F L 97.9 F Pulse Rate 70 69 72 Respiratory Rate 18 16 18 Blood Pressure 116/67 121/68 138/71 Pulse Oximetry 96 96 96 Oxygen Delivery Method Room Air Oxygen Flow Rate 0 Narrative Exam Narrative: She can do an active straight leg raise, her dressing is dry, there is no calf edema she does have some moderate pain with gentle range of motion calfs are soft distally she is alert she is oriented to was actually resting several times when I came in to check on her. Objective Labs Result Diagrams: 03/20/20 05:55 Labs: Laboratory Results - last 24 hr 03/20/20 05:55 Hgb 12.6 Hct 38.4 Assessment & Plan Assessment & Plan narrative: Progressing after a right total knee arthroplasty. We did have some issues with pain control today and I recommended that she continue to work with physical therapy and anticipate discharge to home tomorrow. Quality VTE Deep Vein Thrombosis/Pulmonary Embolism Present on Admission: No
[2020-03-20] MEDS: HYDROMORPHONE 2 MG TABLET PO (21:01)
[2020-03-20] MEDS: SODIUM CHLORIDE 0.9% FLUSH 10 ML IV (21:02)
--- NOTE | 2020-03-20 23:29 | PC.NURSE ---
Addendum entered by Denisha Horowitz R.N. 03/21/20 05:33: Able to get a few hours sleep tonight and states pain much improved this morning at only 5/10; medicated with scheduled Ibuprofen + Dilaudid. Addendum entered by Denisha Horowitz R.N. 03/21/20 00:48: Correction to previous documentation: patient reports feeling urgency with urination and states she does typically dribble urine. Addendum entered by Denisha Horowitz R.N. 03/21/20 00:38: After being up to BSC states pain is now 8/10; medicated with scheduled Ibuprofen + po Dilaudid Original Note: Patient is alert and oriented. Breath sounds with expiratory wheezes throughout; RA sat 95%. HR regularly irregular. BP elevated at 140/72. Denies nausea. BT present and is passing flatus. Denies dysuria, frequency or urgency with urination. Is able to move self in bed. Up to [facility] [place]er and 1 assist. Aquacel dressing covered with praneeth wrap to right knee is CDI. States pain in right knee is 6/10, burning but states she is tolerating; ice packs applied. CMS is intact. Abrasion in left lower abdominal fold noted. Wearing bilateral calf SCD's. Puffiness in left LE. Fall risk score is moderate; bed alarm is activated.
[2020-03-21] MEDS: IBUPROFEN 400 MG TABLET PO ×6 (00:36→20:50)
[2020-03-21] MEDS: HYDROMORPHONE 2 MG TABLET PO ×5 (00:36→19:14)
[2020-03-21 05:20] VITALS: BP 147/97; PULSE 65; RESP 16; TEMP 36.3; O2SAT 94
[2020-03-21 08:00] VITALS: BP 149/72; PULSE 62; RESP 18; TEMP 36.7; O2SAT 94
--- NOTE | 2020-03-21 08:02 | PM.DS.1 ---
History of Present Illness History of Present Illness Date Patient Seen: 03/21/20 Time Patient Seen: 08:02 Chief complaint: OPB Right Total Knee Arthroplasty Narrative: She had severe right knee osteoarthritis was taken the operating room for right total knee arthroplasty. She notes that her right knee pain is less today and she did have get some sleep using oral Dilaudid. Discharge Providers Provider Date of admission: 03/20/20 14:32 Discharge Date: 03/21/20 Consults: 03/19/20 06:00 Consult to Anesthesiology Routine Comment: Consulting Provider: Anesthesiologist Reason for consultation: Regional block for post operative pain control 03/19/20 07:20 Consult to Respiratory Therapy Evaluate & Treat Comment: Physician Instructions: Evaluate and treat 03/19/20 10:55 Consult to Discharge Planning Routine Comment: Consult to Physical Therapy Evaluate & Treat Comment: Physician Instructions: postop TKA protocol Consult to Respiratory Therapy Evaluate & Treat Comment: Physician Instructions: Evaluate and treat Discharge provider: Alexa Weldon MD Summary Hospital Course Discharge Diagnosis: Right knee OA. Right total knee arthroplasty. Hospital Course: She was taken the operating room she underwent a right total knee arthroplasty. She tolerated the procedure well. She did have problems with postoperative pain control. Her pain was ultimately well controlled with oral Dilaudid. She worked hard with physical therapy and was noted to be safe for discharge. Status at Discharge Cognitive/behavioral status at discharge: oriented Functional status at discharge: uses cane/walker Overall status at discharge: patient is progressing back to baseline Time Spent with Patient Time spent: Less than 30 minutes Exam Vital Signs (past 8 hours): - 03/21/20 05:20 Temperature 97.4 F L Pulse Rate 65 Respiratory Rate 16 Blood Pressure 147/97 H Pulse Oximetry 94 Oxygen Delivery Method Room Air Oxygen Flow Rate 0 Narrative Exam Narrative: She is resting comfortably in bed she is alert and oriented, her right knee dressing is benign, she is able to do an active straight leg raise. Her calfs are soft bilaterally. She is neurologically intact distally Objective Labs Result Diagrams: 03/20/20 05:55 Discharge Assessment & Plan Assessment and Plan Plan of Treatment: Doing well status post right total knee arthroplasty. Plan is to discharge to home and do outpatient physical therapy. She will keep her previously scheduled postop appointment. Discharge Plan Discharge Plan Patient Disposition: Home Discharge comment: discharge to home after PT Discharge orders & Medications Prescriptions: New acetaminophen 325 mg Tablet 650 mg PO TID Qty: 90 RF: 0 polyethylene glycol 3350 17 gram Powder In Packet 17 gm PO DAILY PRN (Reason: Constipation) Qty: 30 RF: 0 aspirin 81 mg Tablet,Delayed Release (Dr/Ec) 81 mg PO BID Qty: 90 RF: 0 hydromorphone 2 mg Tablet 2 mg PO Q4HR PRN (Reason: Pain, Severe (7-10)) Qty: 40 RF: 0 ibuprofen 400 mg Tablet 400 mg PO Q4HR Qty: 60 RF: 0 Continued aspirin 325 mg Tablet 975 mg PO DAILY RF: 0 chlorthalidone 25 mg Tablet 25 mg PO DAILY RF: 0 PreserVision AREDS-2 [id number] Capsule 1 tab PO BID RF: 0 cyanocobalamin (vitamin B-12) [Vitamin B-12] 1,000 mcg Tablet 1,000 mcg PO DAILY RF: 0 ascorbic acid (vitamin C) [Vitamin C] 500 mg Tablet 500 mg PO BID RF: 0 zinc 50 mg Tablet 50 mg PO DAILY RF: 0 Restasis 0.05 % Dropperette 1 drp OPHTHALMIC (EYE) BID RF: 0 cholecalciferol (vitamin D3) [Vitamin D3] 125 mcg (5,000 unit) Tablet 125 mcg PO DAILY RF: 0 Diet/Activity/Treatments Diet: Diet as Tolerated Activity: Ambulate multiple times a day Cold/Heat Therapy: Use ice multiple times a day. Skin/Wound/Dressing Care Report to your healthcare provider any signs of infection, such as:: chills, fever, night sweats, increased pain, unusual drainage and unusual redness Dressing: Keep dressing on. Okay to shower. Remove Charanjit wrap. Visit Report/Discharge Packet Instructions: DI for Knee Replacement, DI for Prescription Opioid Use Visit Report Forms: Patient Portal/API, Stroke Signs & Symptoms Discharge Data Attending Provider: Alexa Weldon Admit Date/Time: 03/20/20 14:32 Quality VTE Deep Vein Thrombosis/Pulmonary Embolism Present on Admission: No
[2020-03-21] MEDS: ACETAMINOPHEN 325 MG TABLET 650 MG PO ×3 (08:18→20:48)
[2020-03-21] MEDS: ASPIRIN EC 81 MG TABLET PO ×2 (08:18→20:48)
[2020-03-21] MEDS: ASCORBIC ACID 500 MG TABLET PO ×2 (08:18→20:48)
[2020-03-21] MEDS: DOCUSATE 100 MG CAPSULE PO ×2 (08:19→20:49)
[2020-03-21] MEDS: CHLORTHALIDONE 25 MG TABLET PO (08:19)
[2020-03-21] MEDS: ZINC SULFATE 220 MG CAPSULE PO (08:19)
[2020-03-21] MEDS: CHOLECALCIFEROL (VITAMIN D3) 5,000 UNIT TABLET 5000 UNIT PO (08:19)
[2020-03-21] MEDS: SODIUM CHLORIDE 0.9% FLUSH 10 ML IV ×3 (08:19→21:41)
[2020-03-21] MEDS: CYANOCOBALAMIN (VITAMIN B-12) 500 MCG TABLET 1000 MCG PO (08:19)
--- NOTE | 2020-03-21 11:32 | PT.IPTN ---
Current Diagnoses Unilateral primary osteoarthritis, right knee (03/20/20) Surgery Performed Operation Date: 03/19/20 07:45 Actual Procedures p Total Knee Arthroplasty(Right) - Alexa Weldon MD Physical Therapy Treatment Note M2 PT-IP Current Condition Start: 03/19/20 13:40 Freq: NEEDED Status: Active Protocol: Document 03/19/20 16:36 AW (Rec: 03/19/20 16:59 AW [id number]) Physical Therapy Current Condition Current Condition Evaluation Date 03/19/20 Treatment Diagnosis R TKA; impaired mobility Onset Date 03/19/20 Weight Bearing Status Weight Bearing Status Weight Bear as Tolerated M3 PT-IP Subjective Start: 03/19/20 13:40 Freq: NEEDED Status: Active Protocol: Document 03/21/20 11:04 KS (Rec: 03/21/20 11:54 KS [id number]) Subjective Physical Therapy Visit Type Type Treatment Note Visit Start Time 11:04 Visit Stop Time 11:32 Total Visit Minutes [address] Visits 3 Physical Therapy Visit Comments Patient Comments Pt willing to work with PT. Patient Goals To go home, family and friends to support and assist as needed. Therapy Pain Assessment Pain When Pain Assessed During Mobility Pain Present Pain Present Pain Reported Location right knee Intensity 10 Scale Used Numeric (0 - 10) Description Aching,Acute,Burning,With Movement Pain Behaviors Facial Grimacing,Holding Area, Restlessness,Wincing Pain Management Techniques Apply Cold,Re-positioning, Timing of Activity with Medications M4 PT-IP Mobility and Gait Start: 03/19/20 13:40 Freq: NEEDED Status: Active Protocol: Document 03/21/20 11:04 KS (Rec: 03/21/20 11:54 KS [id number]) PT-Bed Mobility Assessment Supine to Sit Supine to Sit Standby Assistance,Head of Bed Elevated Sit to Supine Sit to Supine Minimal Assistance,1 Person Assistance,Head of Bed Elevated Scooting Scooting to Edge of Bed Standby Assistance Scooting Up and Down in Bed Standby Assistance PT-Transfer Assessment Sit to and From Stand Sit to and from Stand Standby Assistance,Use of Upper Extremities Equipment Transfer Assistive Device Gait Belt,Front Wheeled Walker Transfers Transfer Destination Bed,Toilet Transfer Technique pt ambulated with FWW Transfer Ability Level of Assist Contact Guard Assistance,Use of Upper Extremities Comments Mobility Comments Pt in bed upon arrival from therapy reporting low pain after receiving pain meds. Pt SBA for sup<>sit and scooting EOB w/ HOB elevated. SBA for sit<>stand w/ FWW and proper technique. Pt then ambulated to toilet stand<>sit CGA w/ use of hand rail. Pt SBA for sit<>stand from toilet, CGA for ambulation to sink for hand washing. Pt agreed to further ambulation in hallway but requested w/c follow. Pt 1 min sitting rest break on EOB followed by 15 ft ambulation w / FWW and CGA w/c follow. Pt complained of increased pain after 10/10 after ~15 ft ambulation and requested to sit. Pt then attempted to ambulate back to room after 3 min seated rest break and was only able to tolerate ~5 ft ambulation w/ FWW before being transported in w/c back to bedside. Pt CGA for sit<>stand and remaining 5 ft from w/c to bed. Min A for LE guidance into bed. Pt left in bed w/ all needs in reach and ice applied to knee. Gait Assessment Gait Gait Assistance Required: Contact Guard Assist Distance (Feet) 30 Able to Maintain Weight Bearing Status Yes During Gait Assistive Devices Assistive Device Gait Belt,Front Wheeled Walker Gait Deviations General Gait Pattern Antalgic,Decreased Stride Length,Decreased Feet Clearance,Flexed Trunk,Step-to Gait Factors Limiting Gait Function Factors Limiting Gait Function Decreased Activity Tolerance, Decreased Sensation,Decreased Strength,Limited Range of Motion,Pain Comments Gait Comments Pt ambulated ~30 ft total today w/ FWW and CGA and w/c follow. 5 ft to toilet, 20 ft in hallway, and 5 ft back to bed all w/ seated rest breaks. Pt reported 10/10 pain w/ ambulation and needed cues for step through gait pattern and heel toe walking. Stair Climbing Assessment Comments Stair Climbing Comments Did not assess stair mgt this session. Pt stated will have family/ friends to assist her on stairs when gets home and to appts. PT-Balance Assessment Sitting Balance and Reactions Static Sitting Balance Ability Normal Dynamic Sitting Balance Ability Normal Standing Balance and Reactions Static Standing Balance Ability Good Dynamic Standing Balance Ability Fair Device Used FWW M5 PT-IP Objective Assessments Start: 03/19/20 13:40 Freq: NEEDED Status: Active Protocol: Document 03/19/20 16:36 AW (Rec: 03/19/20 16:59 AW [id number]) Orientation Orientation/Cognition Level of Alertness Alert Orientation Name,Day of Week,Place, Situation Language Function Ability No Deficits Noted Safety Awareness Understands Safety Issues, Decreased Safety Awareness Memory Description No Deficits Noted Gross Range of Motion Upper Extremity ROM Assessment Within Functional Limits Lower Extremity ROM Assessment Right Impaired Strength Lower Extremity Strength Assessment Right Impaired Comments Strength Comments L LE grossly 4+/5 except hip 4 /5 Coordination Assessment Gross Coordination Gross Coordination WNL Sensation Assessment Sensation Gross Sensation Right LE Impaired,Left LE Impaired Light Touch Impaired Sensation Description Numbness Muscle Tone Muscle Tone WNL Yes M6 PT-IP Treatment Start: 03/19/20 13:40 Freq: NEEDED Status: Active Protocol: Document 03/21/20 11:04 KS (Rec: 03/21/20 11:54 KS [id number]) Physical Therapy Treatment Education Education Provided Precautions,Weight Bearing Status,Post-Op Packet,Safety Other Treatments Other Treatment Performed Pt states she has outpatient rehab set up in [place]. M7 PT-IP Assessment and Plan Start: 03/19/20 13:40 Freq: NEEDED Status: Active Protocol: Document 03/21/20 11:04 KS (Rec: 03/21/20 11:54 KS [id number]) PT Summary Assessment and Plan Potential Rehabilitation Potential Good Status of Condition at Evaluation Evolving Summary Impairments Pain,ROM,Strength,Balance, Sensation,Bed Mobility, Transfers,Gait,Activity Tolerance Assessment Summary Pt SBA for most bed mobility and CGA for ambulation w/ w/c follow, required cues for heel toe walking and equal step length. Pt unable to tolerate further ambulation distance today d/t 10/10 reported pain despite recent pain meds. Min A for LE guidance back into bed. Pt is well prepared w/ DME for at home use, however may require SNF to improve strength and tolerance for activity depending on progress. Goals Bed Mobility Goal Independent Transfer Goal Standby Assistance,Front Wheeled Walker Gait Goal Standby Assistance,Front Wheel Walker Gait Distance 200 Other Goals - up/down 4 steps with R rail ascending SBA Days to Meet Goals 2 Frequency of Treatment Frequency Of Treatment Twice a Day Treatment Plan Physical Therapy Treatment Plan Bed Mobility Training,Transfer Training,Gait Training, Therapeutic Exercise,Balance Retraining,Post Op Education, Discharge Planning,Hot or Cold Pack,Neuromuscular Re-ed Other Recommendations and Next Treatment LE exercises, gait training Focus with FWW; reassess stair mgt CGA-SBA. Recommendations To Nursing Amount of Assist Needed 1 Person Assist Discharge Recommendations PT Discharge Recommendations Home with Assistance,SNF Rehab ,Outpatient PT Transportation Needs at Discharge Private Vehicle
--- NOTE | 2020-03-21 12:43 | PC.NURSE ---
Patient resting in bed with ice to her right knee after physical therapy, patient states she does not feel comfortable going home today as anticipated. Castro Stubbs PA on unit and notified of patient's concerns and her difficulty with pain management and physical therapy. Discharge cancelled/delayed and he states they will readdress tomorrow.
--- NOTE | 2020-03-21 14:04 | PT-IP ANOTE ---
Attempted to see patient at 2pm who just went to bathroom with nursing assistance. She stated pain at 8/10 and refused therapy at this point. Will reattempt later this pm or tomorrow morning.
--- NOTE | 2020-03-21 14:42 | CM.DPC ---
DCP Cont: Met with patient. She was supposed to discharge home today, but due to increased pain, she is staying another day. Discussed discharge planning, and plan is still for home with assist of niece. Mentioned home health to patient, but she stated, she would rather go to outpatient over in [facility] to the therapists that she is familiar with. Did not mention care home to patient, but she brought up that she did go to [facility] for her last surgery, but would not go due to the COVID situation. Confirmed with her that her niece, Tamela, will be assisting her. She will not be there all of the time, but the plan is for her to eventually move in with her. P: DCP to continue to follow. Patient should be able to discharge when her pain is controlled, and cleared with stairs by P.T. for home. Liza Salinas RN/Leadership Development Instructor
[2020-03-21 15:10] VITALS: BP 179/111; PULSE 60; RESP 18; TEMP 37.2; O2SAT 93
--- NOTE | 2020-03-21 16:12 | PT.IPTN ---
Current Diagnoses Unilateral primary osteoarthritis, right knee (03/21/20) Surgery Performed Operation Date: 03/19/20 07:45 Actual Procedures p Total Knee Arthroplasty(Right) - Alexa Weldon MD Physical Therapy Treatment Note M2 PT-IP Current Condition Start: 03/19/20 13:40 Freq: NEEDED Status: Active Protocol: Document 03/19/20 16:36 AW (Rec: 03/19/20 16:59 AW [id number]) Physical Therapy Current Condition Current Condition Evaluation Date 03/19/20 Treatment Diagnosis R TKA; impaired mobility Onset Date 03/19/20 Weight Bearing Status Weight Bearing Status Weight Bear as Tolerated M3 PT-IP Subjective Start: 03/19/20 13:40 Freq: NEEDED Status: Active Protocol: Document 03/21/20 16:00 AW (Rec: 03/21/20 16:12 AW [email or web address]) Subjective Physical Therapy Visit Type Type Treatment Note Visit Start Time 15:16 Visit Stop Time 15:34 Total Visit Minutes 18 Number of MICROBIOLOGICAL LAB TECHNICIAN Visits 0 Physical Therapy Visit Comments Patient Comments Pt willing to work with PT. Therapy Pain Assessment Pain When Pain Assessed During Mobility Location right knee Intensity 7 Scale Used Numeric (0 - 10) Description Aching,Burning,With Movement Pain Behaviors Facial Grimacing,Holding Area, Restlessness,Wincing Pain Management Techniques Apply Cold,Re-positioning, Timing of Activity with Medications M4 PT-IP Mobility and Gait Start: 03/19/20 13:40 Freq: NEEDED Status: Active Protocol: Document 03/21/20 16:00 AW (Rec: 03/21/20 16:12 AW [id number]) PT-Bed Mobility Assessment Supine to Sit Supine to Sit Standby Assistance Sit to Supine Sit to Supine Minimal Assistance,1 Person Assistance,Head of Bed Elevated Scooting Scooting to Edge of Bed Standby Assistance Scooting Up and Down in Bed Standby Assistance PT-Transfer Assessment Sit to and From Stand Sit to and from Stand Standby Assistance,Use of Upper Extremities Equipment Transfer Assistive Device Gait Belt,Front Wheeled Walker Transfers Transfer Destination Bed Transfer Technique pt ambulated with FWW Transfer Ability Level of Assist Standby Assistance,Use of Upper Extremities Comments Mobility Comments Pt in bed upon PT arrival. PT had attempted to see pt earlier but she refused due to pain. She is amenable on second attempt. SBA to complete supine to sit with HOB flat. Pt then stood using FWW SBA and ambulated into the halls with FWW CGA. Pt became fatigued quickly and requested return to the bed after ~40 feet. She required min A x 1 to support her operative leg and lift it to the bed surface. Pt was positioned on the bed with call light and all needs in reach. Gait Assessment Gait Gait Assistance Required: Contact Guard Assist Distance (Feet) 40 Able to Maintain Weight Bearing Status Yes During Gait Assistive Devices Assistive Device Gait Belt,Front Wheeled Walker Gait Deviations General Gait Pattern Antalgic,Decreased Stride Length,Decreased Feet Clearance,Flexed Trunk,Step-to Gait Factors Limiting Gait Function Factors Limiting Gait Function Decreased Activity Tolerance, Decreased Sensation,Decreased Strength,Limited Range of Motion,Pain Comments Gait Comments Pt ambulated in the room and duarte for a total of 40' with FWW CGA. She took one brief standing rest break. Stair Climbing Assessment Comments Stair Climbing Comments Pt completed stair training and did not want to attempt again. M5 PT-IP Objective Assessments Start: 03/19/20 13:40 Freq: NEEDED Status: Active Protocol: Document 03/19/20 16:36 AW (Rec: 03/19/20 16:59 AW [id number]) Orientation Orientation/Cognition Level of Alertness Alert Orientation Name,Day of Week,Place, Situation Language Function Ability No Deficits Noted Safety Awareness Understands Safety Issues, Decreased Safety Awareness Memory Description No Deficits Noted Gross Range of Motion Upper Extremity ROM Assessment Within Functional Limits Lower Extremity ROM Assessment Right Impaired Strength Lower Extremity Strength Assessment Right Impaired Comments Strength Comments L LE grossly 4+/5 except hip 4 /5 Coordination Assessment Gross Coordination Gross Coordination WNL Sensation Assessment Sensation Gross Sensation Right LE Impaired,Left LE Impaired Light Touch Impaired Sensation Description Numbness Muscle Tone Muscle Tone WNL Yes M6 PT-IP Treatment Start: 03/19/20 13:40 Freq: NEEDED Status: Active Protocol: Document 03/21/20 16:00 AW (Rec: 03/21/20 16:12 AW [email or web address]) Physical Therapy Treatment Exercises Exercises Ankle Pumps,Gluteal Sets,Quad Sets,Heel Slides,Supine Hip Abduction Education Education Provided Weight Bearing Status,Safety Other Treatments Other Treatment Performed Pt tolerated supine ther ex well, including active heel slides with limited ROM. M7 PT-IP Assessment and Plan Start: 03/19/20 13:40 Freq: NEEDED Status: Active Protocol: Document 03/21/20 16:00 AW (Rec: 03/21/20 16:12 AW [email or web address]) PT Summary Assessment and Plan Potential Rehabilitation Potential Good Status of Condition at Evaluation Stable Summary Impairments Pain,ROM,Strength,Balance, Sensation,Bed Mobility, Transfers,Gait,Activity Tolerance Progress Towards Goals Slow Progress due to Pain Assessment Summary Progress continues to be limited due to right knee pain . She notes that her left TKA rehab was much less complicated. With pt tolerating such little activity, she may require SNF rehab if unable to progress her safe mobility in the acute setting. Will continue to assess. Goals Bed Mobility Goal Independent Transfer Goal Standby Assistance,Front Wheeled Walker Gait Goal Standby Assistance,Front Wheel Walker Gait Distance 200 Other Goals - up/down 4 steps with R rail ascending SBA Days to Meet Goals 5 Frequency of Treatment Frequency Of Treatment Twice a Day Treatment Plan Physical Therapy Treatment Plan Bed Mobility Training,Transfer Training,Gait Training, Therapeutic Exercise,Balance Retraining,Post Op Education, Discharge Planning,Hot or Cold Pack,Neuromuscular Re-ed Other Recommendations and Next Treatment LE exercises, gait training Focus with FWW; reassess stair mgt CGA-SBA. Recommendations To Nursing Amount of Assist Needed 1 Person Assist Discharge Recommendations PT Discharge Recommendations Home with Assistance,SNF Rehab ,Outpatient PT Other Discharge Recommendations Home with assist and OP PT vs SNF rehab Transportation Needs at Discharge Private Vehicle
[2020-03-21 18:10] VITALS: BP 147/63; PULSE 92; RESP 17; TEMP 36.8; O2SAT 97
--- NOTE | 2020-03-21 19:17 | PC.NURSE ---
Addendum entered by Delmi Johnson R.N. 03/21/20 23:31: Mostly sleeping in bed this evening shift. Rouses for toileting and uses call light appropriately. No change in neurovascular status or dressing to right knee. Addendum entered by Delmi Johnson R.N. 03/21/20 21:21: Dr. Weldon in to see patient. Original Note: Pt mostly sleeping in bed with head of bed slightly elevated. Rouses easily to verbal stimuli. Rates right knee pain 7/10 burning in nature. Slight erythema surrounding aquacel dressing to right knee. Nonpitting edema to RLE. BL calf scd's in place. Palpable right pedal pulse and left pedal pulse present with doppler. One assist with walker to bathroom. Is able to manage in and out of bed independently. BP improved with recheck as initial blood pressure taken just after pt had been out of bed with P.T.
[2020-03-21] MEDS: KETOROLAC 30 MG/ML VIAL 10 MG IV (21:34)
[2020-03-21 23:00] VITALS: BP 146/86; PULSE 77; RESP 16; TEMP 36.7; O2SAT 94
[2020-03-22] MEDS: HYDROMORPHONE 2 MG TABLET PO ×4 (00:56→13:13)
[2020-03-22] MEDS: IBUPROFEN 400 MG TABLET PO ×4 (00:57→13:13)
--- NOTE | 2020-03-22 01:40 | PC.NURSE ---
Addendum entered by Denisha Horowitz R.N. 03/22/20 05:27: Awakened for scheduled Ibuprofen and patient requests Dilaudid also be given as I want to go home today and so wants pain well controlled so she will do well with therapy. Rates pain severity as 3/10 and states it is more achy this morning. Original Note: Patient seen and assessed at 0100. Is alert and oriented. Breath sounds with expiratory wheezes; RA sat 94%. HRR. BP elevated at 146/86. Denies nausea. BT present and is passing flatus. Voiding; denies dysuria but states she has chronic urgency/dribbling. Is able to move self in bed. Up to bathroom with walker and SBA. Aquacel dressing to right knee is CDI. Drain site dressing is CDI. CMS is intact. Wearing bilateral calf SCD's. States pain is only 3/10 when awakened for assessment but still requested Dilaudid to keep on top of the pain. Fall risk score is moderate; bed alarm is activated.
[2020-03-22 05:30] VITALS: BP 113/87; PULSE 75; RESP 16; TEMP 36.7; O2SAT 92
[2020-03-22] MEDS: ACETAMINOPHEN 325 MG TABLET 650 MG PO (08:15)
[2020-03-22] MEDS: DOCUSATE 100 MG CAPSULE PO (08:16)
[2020-03-22] MEDS: ASCORBIC ACID 500 MG TABLET PO (08:16)
[2020-03-22] MEDS: CYANOCOBALAMIN (VITAMIN B-12) 500 MCG TABLET 1000 MCG PO (08:16)
[2020-03-22] MEDS: ASPIRIN EC 81 MG TABLET PO (08:16)
[2020-03-22] MEDS: SODIUM CHLORIDE 0.9% FLUSH 10 ML IV (08:17)
[2020-03-22] MEDS: CHOLECALCIFEROL (VITAMIN D3) 5,000 UNIT TABLET 5000 UNIT PO (08:35)
[2020-03-22] MEDS: CHLORTHALIDONE 25 MG TABLET PO (08:35)
[2020-03-22] MEDS: ZINC SULFATE 220 MG CAPSULE PO (08:35)
[2020-03-22 09:00] VITALS: BP 130/60; PULSE 82; RESP 18; TEMP 36.6; O2SAT 95
--- NOTE | 2020-03-22 09:02 | PC.NURSE ---
Addendum entered by Radha Head R.N. 03/22/20 13:31: Discharge summary packet reviewed with pt. Pt states already having follow up appointment with Dr. Weldon. States already has Miralax at home to prevent constipation. Pt states has all her belongings. No further voiced concerns regarding discharge information. Pt left unit at 1345 in no distress via wheelchair with BACKBREAKER escort. Original Note: Day Shift- Pt A&OX4, disoriented to date, states her surgery was on the and today must be the . Able to make needs known using call light. Rates 4-5/10 pain aching and throbbing to right knee incisional area. States is tolerable with ambulation and decreases with rest. Pain management plan discussed, plan for PRN Dilaudid po as ordered. Right knee aquacel dressing CDI, old hemovac site dressing of gauze and tegaderm intact with slight sero-sang drainage shadowing. Denies numbness or tinging. AE clear to upper bilateral anterior lobes, pt has inspiratory and expiratory wheezes to mid and lower lobe areas posteriorly. Pt able to demonstrate incentive spirometer use, reminded to perform slow deep breaths while using tool and pt able to demonstrate properly. Performing ankle waves and right knee depression muscle exercises. Pt wants to go home today, will continue to monitor.
--- NOTE | 2020-03-22 10:27 | PT.IPTN ---
Current Diagnoses Unilateral primary osteoarthritis, right knee (03/21/20) Surgery Performed Operation Date: 03/19/20 07:45 Actual Procedures p Total Knee Arthroplasty(Right) - Alexa Weldon MD Physical Therapy Treatment Note M2 PT-IP Current Condition Start: 03/19/20 13:40 Freq: NEEDED Status: Active Protocol: Document 03/19/20 16:36 AW (Rec: 03/19/20 16:59 AW [id number]) Physical Therapy Current Condition Current Condition Evaluation Date 03/19/20 Treatment Diagnosis R TKA; impaired mobility Onset Date 03/19/20 Weight Bearing Status Weight Bearing Status Weight Bear as Tolerated M3 PT-IP Subjective Start: 03/19/20 13:40 Freq: NEEDED Status: Active Protocol: Document 03/22/20 11:32 KS (Rec: 03/22/20 11:47 KS [id number]) Subjective Physical Therapy Visit Type Type Treatment Note Visit Start Time 10:04 Visit Stop Time 10:27 Total Visit Minutes 23 Number of HOOP MAKER Visits 1 Physical Therapy Visit Comments Patient Comments Pt willing to work with PT. Patient Goals To go home, family and friends to support and assist as needed. Therapy Pain Assessment Pain When Pain Assessed During Mobility Pain Present Pain Present Pain Reported Location right knee Scale Used no number given, significantly less than yesterday Description Aching,With Movement Pain Behaviors Guarding Pain Management Techniques Re-positioning,Timing of Activity with Medications M4 PT-IP Mobility and Gait Start: 03/19/20 13:40 Freq: NEEDED Status: Active Protocol: Document 03/22/20 11:32 KS (Rec: 03/22/20 11:47 KS [id number]) PT-Bed Mobility Assessment Supine to Sit Supine to Sit Standby Assistance,Head of Bed Elevated Sit to Supine Sit to Supine Minimal Assistance,1 Person Assistance,Head of Bed Elevated Scooting Scooting to Edge of Bed Standby Assistance Scooting Up and Down in Bed Standby Assistance PT-Transfer Assessment Sit to and From Stand Sit to and from Stand Standby Assistance,Use of Upper Extremities Equipment Transfer Assistive Device Gait Belt,Front Wheeled Walker Transfers Transfer Destination Bed Transfer Technique pt ambulated with FWW Transfer Ability Level of Assist Standby Assistance,Use of Upper Extremities Comments Mobility Comments Pt in bed upon arrival from therapy. Reviewed LE strengthening exercises which pt states she has been completing on her own. Pt then sup<>sit and scooted to EOB SBA w/ HOB elevated. SBA for sit<>stand w/ proper technique and hand placement. Pt then ambulated ~100 ft w/ FWW and CGA w/ cues for upright posture and R quad activation and heel toe walking. PT ambulated further and more quickly this AM and reports much less pain. Pt returned to room and stand<>sit SBA and Min A for sit<>sup in bed for LE guidance. Pt left in bed w/ all needs in reach. Gait Assessment Gait Gait Assistance Required: Contact Guard Assist Distance (Feet) 100 Able to Maintain Weight Bearing Status Yes During Gait Assistive Devices Assistive Device Gait Belt,Front Wheeled Walker Orthotic/Prosthetic Devices or Brace: No Gait Deviations General Gait Pattern Antalgic,Decreased Stride Length,Decreased Feet Clearance,Flexed Trunk Factors Limiting Gait Function Factors Limiting Gait Function Decreased Activity Tolerance, Decreased Sensation,Decreased Strength,Limited Range of Motion,Pain Comments Gait Comments Please refer to mobility section for detail. Stair Climbing Assessment Comments Stair Climbing Comments Will attempt to assess in PM. PT-Balance Assessment Sitting Balance and Reactions Static Sitting Balance Ability Normal Dynamic Sitting Balance Ability Normal Standing Balance and Reactions Static Standing Balance Ability Good Dynamic Standing Balance Ability Good Device Used FWW M5 PT-IP Objective Assessments Start: 03/19/20 13:40 Freq: NEEDED Status: Active Protocol: Document 03/19/20 16:36 AW (Rec: 03/19/20 16:59 AW [id number]) Orientation Orientation/Cognition Level of Alertness Alert Orientation Name,Day of Week,Place, Situation Language Function Ability No Deficits Noted Safety Awareness Understands Safety Issues, Decreased Safety Awareness Memory Description No Deficits Noted Gross Range of Motion Upper Extremity ROM Assessment Within Functional Limits Lower Extremity ROM Assessment Right Impaired Strength Lower Extremity Strength Assessment Right Impaired Comments Strength Comments L LE grossly 4+/5 except hip 4 /5 Coordination Assessment Gross Coordination Gross Coordination WNL Sensation Assessment Sensation Gross Sensation Right LE Impaired,Left LE Impaired Light Touch Impaired Sensation Description Numbness Muscle Tone Muscle Tone WNL Yes M6 PT-IP Treatment Start: 03/19/20 13:40 Freq: NEEDED Status: Active Protocol: Document 03/22/20 11:32 KS (Rec: 03/22/20 11:47 KS [id number]) Physical Therapy Treatment Exercises Exercises Ankle Pumps,Gluteal Sets,Quad Sets,Heel Slides Education Education Provided Weight Bearing Status,Safety M7 PT-IP Assessment and Plan Start: 03/19/20 13:40 Freq: NEEDED Status: Active Protocol: Document 03/22/20 11:32 KS (Rec: 03/22/20 11:47 KS [id number]) PT Summary Assessment and Plan Potential Rehabilitation Potential Good Status of Condition at Evaluation Stable Summary Impairments Pain,ROM,Strength,Balance, Sensation,Bed Mobility, Transfers,Gait,Activity Tolerance Assessment Summary Pt showed improvements w/ ambulation distance and tolerance for activity today and states her pain is being managed much better. Pt SBA for mobility, CGA for ambulation, and Min A for return to bed for LE guidance. Will assess stairs again this PM. Anticipating d/c home w/ neice if pt safely completes stairs. Goals Bed Mobility Goal Independent Transfer Goal Standby Assistance,Front Wheeled Walker Gait Goal Standby Assistance,Front Wheel Walker Gait Distance 200 Other Goals - up/down 4 steps with R rail ascending SBA Days to Meet Goals 5 Frequency of Treatment Frequency Of Treatment Twice a Day Treatment Plan Physical Therapy Treatment Plan Bed Mobility Training,Transfer Training,Gait Training, Therapeutic Exercise,Balance Retraining,Post Op Education, Discharge Planning,Hot or Cold Pack,Neuromuscular Re-ed Other Recommendations and Next Treatment LE exercises, gait training Focus with FWW; reassess stair mgt CGA-SBA. Recommendations To Nursing Amount of Assist Needed 1 Person Assist Discharge Recommendations PT Discharge Recommendations Home with Assistance,SNF Rehab ,Outpatient PT Other Discharge Recommendations Home with assist and OP PT vs SNF rehab Transportation Needs at Discharge Private Vehicle
--- NOTE | 2020-03-22 11:48 | PM.DS.1 ---
History of Present Illness History of Present Illness Chief complaint: OPB Right Total Knee Arthroplasty Narrative: She had severe right knee osteoarthritis was taken the operating room for right total knee arthroplasty. She notes that her right knee pain is less today and she did have get some sleep using oral Dilaudid. Discharge Providers Provider Date of admission: 03/21/20 14:22 Discharge Date: 03/22/20 Consults: 03/19/20 06:00 Consult to Anesthesiology Routine Comment: Consulting Provider: Anesthesiologist Reason for consultation: Regional block for post operative pain control 03/19/20 07:20 Consult to Respiratory Therapy Evaluate & Treat Comment: Physician Instructions: Evaluate and treat 03/19/20 10:55 Consult to Discharge Planning Routine Comment: Consult to Physical Therapy Evaluate & Treat Comment: Physician Instructions: postop TKA protocol Consult to Respiratory Therapy Evaluate & Treat Comment: Physician Instructions: Evaluate and treat Discharge provider: Alexa Weldon MD Summary Hospital Course Hospital Course: She underwent a right total knee arthroplasty. She did have significant problems with postoperative pain control. She ultimately responded reasonably well to oral Dilaudid. She did have a single dose of IV Toradol. She mobilized with physical therapy and became independent. Status at Discharge Cognitive/behavioral status at discharge: oriented Functional status at discharge: uses cane/walker Overall status at discharge: patient is progressing back to baseline Time Spent with Patient Time spent: Less than 30 minutes Exam Vital Signs (past 8 hours): - 03/22/20 05:30 03/22/20 09:00 Temperature 98.0 F 97.9 F Pulse Rate 75 82 Respiratory Rate 16 18 Blood Pressure 113/87 130/60 Pulse Oximetry 92 95 Oxygen Delivery Method Room Air Oxygen Flow Rate 0 Narrative Exam Narrative: Dressings dry, able to do an active straight leg raise, fair range of motion, calfs are soft Objective Labs Result Diagrams: 03/20/20 05:55 Discharge Assessment & Plan Assessment and Plan Plan of Treatment: Doing well status post right total knee arthroplasty. Plan is to discharge to home and do outpatient physical therapy. She will keep her previously scheduled postop appointment. Discharge Plan Discharge Plan Patient Disposition: Home Discharge comment: discharge to home after PT Discharge orders & Medications Prescriptions: New acetaminophen 325 mg Tablet 650 mg PO TID Qty: 90 RF: 0 polyethylene glycol 3350 17 gram Powder In Packet 17 gm PO DAILY PRN (Reason: Constipation) Qty: 30 RF: 0 aspirin 81 mg Tablet,Delayed Release (Dr/Ec) 81 mg PO BID Qty: 90 RF: 0 hydromorphone 2 mg Tablet 2 mg PO Q4HR PRN (Reason: Pain, Severe (7-10)) Qty: 40 RF: 0 ibuprofen 400 mg Tablet 400 mg PO Q4HR Qty: 60 RF: 0 Continued aspirin 325 mg Tablet 975 mg PO DAILY RF: 0 chlorthalidone 25 mg Tablet 25 mg PO DAILY RF: 0 PreserVision AREDS-2 [id number] Capsule 1 tab PO BID RF: 0 cyanocobalamin (vitamin B-12) [Vitamin B-12] 1,000 mcg Tablet 1,000 mcg PO DAILY RF: 0 ascorbic acid (vitamin C) [Vitamin C] 500 mg Tablet 500 mg PO BID RF: 0 zinc 50 mg Tablet 50 mg PO DAILY RF: 0 Restasis 0.05 % Dropperette 1 drp OPHTHALMIC (EYE) BID RF: 0 cholecalciferol (vitamin D3) [Vitamin D3] 125 mcg (5,000 unit) Tablet 125 mcg PO DAILY RF: 0 Follow up/Referrals: Alexa Weldon MD [Physician] - (Post-Operative appointment as previously scheduled) Diet/Activity/Treatments Diet: Diet as Tolerated Activity: Ambulate multiple times a day Cold/Heat Therapy: Use ice multiple times a day. Skin/Wound/Dressing Care Report to your healthcare provider any signs of infection, such as:: chills, fever, night sweats, increased pain, unusual drainage and unusual redness Dressing: Keep dressing on. Okay to shower. Remove Charanjit wrap. Visit Report/Discharge Packet Instructions: DI for Knee Replacement, How to Prevent Falls, DI for Postoperative Pain, DI for Prescription Opioid Use, Hydromorphone Visit Report Forms: Patient Portal/API, Stroke Signs & Symptoms Quality VTE Deep Vein Thrombosis/Pulmonary Embolism Present on Admission: No
--- NOTE | 2020-03-22 13:26 | CM.DPC ---
DCP: continued: case received and d/c to home order noted by Dr. Weldon. Checked in with pt after EMR review. Pt is found dressed and going over the final d/c paperwork with MANNY Garcia. She reports her neice will be here shortly to take her home. She expresses eagerness for the d/c today. BIJAN Jayla plans to do another session with pt on stairs and the pt will d/c. OUTPT therapy is planned.
--- NOTE | 2020-03-22 13:40 | PT.IPTN ---
Current Diagnoses Unilateral primary osteoarthritis, right knee (03/21/20) Surgery Performed Operation Date: 03/19/20 07:45 Actual Procedures p Total Knee Arthroplasty(Right) - Alexa Weldon MD Physical Therapy Treatment Note M2 PT-IP Current Condition Start: 03/19/20 13:40 Freq: NEEDED Status: Discharge Protocol: Document 03/19/20 16:36 AW (Rec: 03/19/20 16:59 AW [id number]) Physical Therapy Current Condition Current Condition Evaluation Date 03/19/20 Treatment Diagnosis R TKA; impaired mobility Onset Date 03/19/20 Weight Bearing Status Weight Bearing Status Weight Bear as Tolerated M3 PT-IP Subjective Start: 03/19/20 13:40 Freq: NEEDED Status: Discharge Protocol: Document 03/22/20 13:30 KS (Rec: 03/22/20 14:08 KS [id number]) Subjective Physical Therapy Visit Type Type Treatment Note Visit Start Time 13:30 Visit Stop Time 13:40 Total Visit Minutes 10 Number of SHOP ROUTER Visits 1 Physical Therapy Visit Comments Patient Comments Pt willing to work with PT. Patient Goals To go home, family and friends to support and assist as needed. M4 PT-IP Mobility and Gait Start: 03/19/20 13:40 Freq: NEEDED Status: Discharge Protocol: Document 03/22/20 13:30 KS (Rec: 03/22/20 14:08 KS [id number]) PT-Bed Mobility Assessment Supine to Sit Supine to Sit Standby Assistance,Head of Bed Elevated Scooting Scooting to Edge of Bed Standby Assistance PT-Transfer Assessment Sit to and From Stand Sit to and from Stand Standby Assistance,Use of Upper Extremities Equipment Transfer Assistive Device Gait Belt,Front Wheeled Walker Transfers Transfer Destination Wheelchair Transfer Technique pt ambulated with FWW Transfer Ability Level of Assist Standby Assistance,Use of Upper Extremities Comments Mobility Comments Pt in bed upon arrival from therapy and agreeable to doing stairs prior to d/c. Pt SBA for sup<>sit, scooting EOB w/ HOB elevated and sit<>stand w/ FWW. Pt then ambulated ~15 ft to w/c w/ FWW and SBA and transported to stairs for energy conservation. Pt completed 3 steps ascending/ descending w/ SPC and R hand rail SBA to CGA. Pt showed good safety awareness and proper use of SPC and sequencing whe n completing stairs. Pt stand<>sit back in w/c SBA and left in w/c w/ all needs in reach in preparation to d/c. Gait Assessment Gait Gait Assistance Required: Standby Assistance Distance (Feet) 15 Able to Maintain Weight Bearing Status Yes During Gait Assistive Devices Assistive Device Gait Belt,Front Wheeled Walker Orthotic/Prosthetic Devices or Brace: No Gait Deviations General Gait Pattern Antalgic,Decreased Stride Length,Decreased Feet Clearance,Flexed Trunk Factors Limiting Gait Function Factors Limiting Gait Function Decreased Activity Tolerance, Decreased Sensation,Decreased Strength,Limited Range of Motion,Pain Comments Gait Comments Please refer to mobility section for detail. Stair Climbing Assessment Evaluation Level of Assist On Stairs Standby Assistance,Contact Guard Assistance,1 Person Assistance Devices Stair Climbing Assistive Devices Straight Cane,Right Railing Technique/Endurance Stair Climbing Direction Ascend and Descend Stair Climbing Technique Step to Step Number of Steps Climbed 3 Stair Climbing Set # Repetitions (reps) 1 Comments Stair Climbing Comments Pt ascended/descended 3 steps w/ SPC and R hand rail w/ step to step pattern and SBA to CGA. Pt demonstrated correct sequencing w/ SPC and stated she feels safe to complete stairs at home. PT-Balance Assessment Sitting Balance and Reactions Static Sitting Balance Ability Normal Dynamic Sitting Balance Ability Normal Standing Balance and Reactions Static Standing Balance Ability Good Dynamic Standing Balance Ability Good Device Used FWW M5 PT-IP Objective Assessments Start: 03/19/20 13:40 Freq: NEEDED Status: Discharge Protocol: Document 03/19/20 16:36 AW (Rec: 03/19/20 16:59 AW [id number]) Orientation Orientation/Cognition Level of Alertness Alert Orientation Name,Day of Week,Place, Situation Language Function Ability No Deficits Noted Safety Awareness Understands Safety Issues, Decreased Safety Awareness Memory Description No Deficits Noted Gross Range of Motion Upper Extremity ROM Assessment Within Functional Limits Lower Extremity ROM Assessment Right Impaired Strength Lower Extremity Strength Assessment Right Impaired Comments Strength Comments L LE grossly 4+/5 except hip 4 /5 Coordination Assessment Gross Coordination Gross Coordination WNL Sensation Assessment Sensation Gross Sensation Right LE Impaired,Left LE Impaired Light Touch Impaired Sensation Description Numbness Muscle Tone Muscle Tone WNL Yes M6 PT-IP Treatment Start: 03/19/20 13:40 Freq: NEEDED Status: Discharge Protocol: Document 03/22/20 13:30 KS (Rec: 03/22/20 14:08 KS [id number]) Physical Therapy Treatment Education Education Provided Weight Bearing Status,Safety M7 PT-IP Assessment and Plan Start: 03/19/20 13:40 Freq: NEEDED Status: Discharge Protocol: Document 03/22/20 13:30 KS (Rec: 03/22/20 14:08 KS [id number]) PT Summary Assessment and Plan Potential Rehabilitation Potential Good Status of Condition at Evaluation Stable Summary Impairments Pain,ROM,Strength,Balance, Sensation,Bed Mobility, Transfers,Gait,Activity Tolerance Progress Towards Goals Progressing Toward Goals Assessment Summary Pt able to ascend/descend 3 steps SBA to CGA w/ SPC and R rail this PM. Pt is SBA for bed mobility and transfers, SBA to CGA for ambulation and stairs. She reports pain is still being managed well and she feels ready to d/c home w/ neice. Pt will benefit from outpatient rehab or HHPT to improve strength, gait, and ROM. Goals Bed Mobility Goal Independent Transfer Goal Standby Assistance,Front Wheeled Walker Gait Goal Standby Assistance,Front Wheel Walker Gait Distance 200 Other Goals - up/down 4 steps with R rail ascending SBA Days to Meet Goals 5 Frequency of Treatment Frequency Of Treatment Twice a Day Treatment Plan Physical Therapy Treatment Plan Bed Mobility Training,Transfer Training,Gait Training, Therapeutic Exercise,Balance Retraining,Post Op Education, Discharge Planning,Hot or Cold Pack,Neuromuscular Re-ed Other Recommendations and Next Treatment LE exercises, gait training Focus with FWW; reassess stair mgt CGA-SBA. Recommendations To Nursing Amount of Assist Needed 1 Person Assist Discharge Recommendations PT Discharge Recommendations Home with Assistance, Outpatient PT Transportation Needs at Discharge Private Vehicle
== END 2020-03-22 13:45 | disposition home or self-care (01) | DRG 470 ==
LOC: OR 14:53 → AC 14:53
PROVIDERS: Admitting Provider Orthopaedic Surgery; Family Provider Internal Medicine; Referring Provider Orthopaedic Surgery; Visit Provider Orthopaedic Surgery
PROC: 0SRC0JZ Replacement of Right Knee Joint with Synthetic Substitute, Open Approach (ICD-10-PCS; CPT 27447; principal; 2020-03-19 07:45)
DX: M17.11 Unilateral primary osteoarthritis, right knee (principal); Z96.652 Presence of left artificial knee joint; F17.210 Nicotine dependence, cigarettes, uncomplicated; G89.18 Other acute postprocedural pain
CPT/HCPCS: 36415; 73560; 85014; 85018; 97110; 97116; 97161; 97530; C1776; G0378; C9290; J0690; J1100; J1885; J2250; J2274; J2405; J2704; J3010